=== PATIENT | female | born 1940 | race African-American/Black ===

== ENCOUNTER 2016-09-14 15:48 | Inpatient (IN) | payer OTHER, MEDICARE ==
[~2016-09-14] VITALS: Ht 170.2 cm; Wt 98.1 kg
[~2016-09-14 15:48] MED LIST: CLIN1CAP6 OR; LORTA5 PO; Z.0.NO CURRENT MEDS
[2016-09-14 16:27] VITALS: BP 100/54; PULSE 80; RESP 16; TEMP 97.8; O2SAT 99
[2016-09-14] MEDS ORDERED: SODIUM CHLORIDE 0.9% FLUSH 5 ML FLUSH IVF PRN (16:45)
--- NOTE | 2016-09-14 18:18 | PD ---
HPI Chief Complaint: Altered Mental Status Time Seen by Provider: 18:00 Travel History International Travel<30 days: No Contact w/Intl Traveler<30days: No Traveled to known affect area: No History of Present Illness HPI 76-year-old Afro-Australian female coming in with altered mental status. She was brought in by EMS. I have very little history on this patient. She is in the ambulance [facility] Past Medical History Medical History: Unable to Obtain Hypertension: Yes Past Surgical History Appendectomy: Yes Section: Yes Gynecologic Surgery: Yes ( ) Social History Alcohol Use: No Tobacco Use: No Substance Use: No Allergies-Medications (Allergen,Severity, Reaction): Coded Allergies: No Known Allergies (Verified , 09/14/16) Reported Meds & Prescriptions Reported Meds & Active Scripts Active Clindamycin Hcl (Clindamycin HCl) 300 Mg Cap 300 Mg OR TID Lortab 5/325 Tab (Hydrocodone-Acetaminophen) 1 Tab Tab 1 Tab PO Q6HPRN Reported No Current Meds (Miscellaneous Medication) Misc Review of Systems ROS Limitations: Altered Mental Status, Poor Historian General / Constitutional: No: Fever Eyes: No: Visual changes HENT: No: Headaches Cardiovascular: No: Chest Pain or Discomfort Respiratory: No: Shortness of Breath Gastrointestinal: No: Abdominal Pain Genitourinary: No: Dysuria Musculoskeletal: No: Pain Skin: No Rash Neurologic: No: Weakness Psychiatric: No: Depression Endocrine: No: Polydipsia Hematologic/Lymphatic: No: Easy Bruising Physical Exam Exam Limitations: Altered Mental Status, Poor Historian Narrative GENERAL: Patient appears in no acute distress. Patient answers all questions with " Uh-Huh". SKIN: Warm and dry. Normal color. Poor turgor. Mild tenting. HEAD: Atraumatic. Normocephalic. EYES: Pupils equal and round. No scleral icterus. No injection or drainage. ENT: No nasal bleeding or discharge. Mucous membranes pink and dry. Pharynx appears normal. Airway is patent. NECK: Trachea midline. No JVD. CARDIOVASCULAR: Regular rate and rhythm. RESPIRATORY: No accessory muscle use. Clear to auscultation. Breath sounds equal bilaterally. GASTROINTESTINAL: Abdomen soft, non-tender, nondistended. Hepatic and splenic margins not palpable. MUSCULOSKELETAL: Extremities without clubbing, cyanosis, or edema. No obvious deformities. NEUROLOGICAL: Awake and alert. Patient asking for something to drink. No obvious cranial nerve deficits. Motor grossly within normal limits. Five out of 5 muscle strength in the arms and legs. Normal speech. PSYCHIATRIC: Cannot assess due to patient's altered mental status. Data Data Last Documented VS Vital Signs Date Time Temp Pulse Resp B/P Pulse Ox O2 Delivery O2 Flow Rate FiO2 09/14/16 16:27 97.8 80 16 100/54 99 Orders Electrocardiogram (09/14/16 16:41) Basic Metabolic Panel (Bmp) (09/14/16 16:41) Complete Blood Count With Diff (09/14/16 16:41) Urinalysis - C+S If Indicated (09/14/16 16:41) Blood Glucose (09/14/16 16:41) Sodium Chloride 0.9% Flush (Ns Flush) (09/14/16 16:45) Cath For Specimen (09/14/16 16:41) Labs Laboratory Tests Test 09/14/16 17:51 White Blood Count 8.3 TH/MM3 Red Blood Count 4.52 MIL/MM3 Hemoglobin 12.6 GM/DL Hematocrit 39.9 % Mean Corpuscular Volume 88.2 FL Mean Corpuscular Hemoglobin 27.9 PG Mean Corpuscular Hemoglobin 31.6 % Concent Red Cell Distribution Width 15.3 % Platelet Count 222 TH/MM3 Mean Platelet Volume 8.8 FL Neutrophils (%) (Auto) 64.1 % Lymphocytes (%) (Auto) 22.7 % Monocytes (%) (Auto) 12.4 % Eosinophils (%) (Auto) 0.1 % Basophils (%) (Auto) 0.7 % Neutrophils # (Auto) 5.3 TH/MM3 Lymphocytes # (Auto) 1.9 TH/MM3 Monocytes # (Auto) 1.0 TH/MM3 Eosinophils # (Auto) 0.0 TH/MM3 Basophils # (Auto) 0.1 TH/MM3 CBC Comment DIFF FINAL Differential Comment MDM Medical Decision Making Medical Screen Exam Complete: Yes Emergency Medical Condition: Yes Differential Diagnosis Altered mental status. Urinary tract infection. Sepsis. Imbalance. Narrative Course Patient is medically stable at time of exam. CBC, CMP, urinalysis, blood glucose, EKG, is ordered. Patient is given 500 mL of normal saline bolus. Patient is awaiting med bed placement. Patient was moved to [facility], and an patient's care was assumed by Dr. Dimas after I discussed her with him. Condition: Stable Wes Hines Sep 14, 2016 18:18 Wes Hines Sep 14, 2016 18:18
[2016-09-14 18:46] LABS: AUTOMATED NEUTROPHIL # 5.3 TH/MM3 (1.8-7.7); BASOPHIL # 0.1 TH/MM3 (0-0.2); BASOPHIL % 0.7 % (0.0-2.0); EOSINOPHIL % 0.1 % (0.0-4.0); HEMATOCRIT 39.9 % (35.0-46.0); HEMO FLAGS DIFF FINAL; LYMPH % 22.7 % (9.0-44.0); LYMPHOCYTE # 1.9 TH/MM3 (1.0-4.8); MEAN CELL VOLUME 88.2 FL (80.0-100.0); MEAN CORPUSCULAR HEMOGLOBIN 27.9 PG (27.0-34.0); MEAN CORPUSCULAR HGB CONC 31.6 % (32.0-36.0); MONO % 12.4 % (0.0-8.0); NEUT % 64.1 % (16.0-70.0); PLATELET COUNT 222 TH/MM3 (150-450); RED BLOOD COUNT 4.52 MIL/MM3 (4.00-5.30); RED CELL DISTRIBUTION WIDTH 15.3 % (11.6-17.2); WHITE BLOOD COUNT 8.3 TH/MM3 (4.0-11.0)
[2016-09-14 19:05] LABS: BICARBONATE 13.8 MEQ/L (21.0-32.0); POTASSIUM 4.8 MEQ/L (3.5-5.1)
--- NOTE | 2016-09-14 19:39 | PD ---
Physical Exam Narrative Patient was seen and examined with my assistant professor of economics. Patient's daughter states the patient was lethargic and would not get out of bed this morning. Patient otherwise denies any headache, chest pain or shortness of breath, abdominal pain, nausea vomiting diarrhea. Patient denies any focal weakness and numbness of extremity. Patient has history hypertension , CAD, dyslipidemia. Patient started having bilateral eye discharge since yesterday. Patient has an appointment with armature inspector this morning but could not make it. Patient's daughter states that no history of CVA or NM. Patient's daughter states that no coughing congestion fever chills recently. Patient's daughter states the patient has been eating well. Data Data Last Documented VS Vital Signs Date Time Temp Pulse Resp B/P Pulse Ox O2 Delivery O2 Flow Rate FiO2 09/14/16 20:00 98.1 83 19 96/57 97 Room Air Orders Electrocardiogram (09/14/16 16:41) Basic Metabolic Panel (Bmp) (09/14/16 16:41) Complete Blood Count With Diff (09/14/16 16:41) Urinalysis - C+S If Indicated (09/14/16 16:41) Blood Glucose (09/14/16 16:41) Sodium Chloride 0.9% Flush (Ns Flush) (09/14/16 16:45) Cath For Specimen (09/14/16 16:41) Creatine Kinase (Cpk) (09/14/16 19:31) Troponin I (09/14/16 19:31) B-Type Natriuretic Peptide (09/14/16 19:31) Prothrombin Time / Inr (Pt) (09/14/16 19:31) Act Partial Throm Time (Ptt) (09/14/16 19:31) Blood Culture (09/14/16 19:31) Hepatic Functional Panel (09/14/16 19:31) Thyroid Stimulating Hormone (09/14/16 19:31) Chest, Single Ap (09/14/16 19:31) Ct Brain W/O Iv Contrast(Rout) (09/14/16 19:31) CKMB (09/14/16 17:51) CKMB% (09/14/16 17:51) Urine Culture (09/14/16 19:40) Lactic Acid (09/14/16 21:35) Beta Hydroxybutyrate (Acetone) (09/14/16 21:37) Piperacil-Tazo 3.375 Gm Premix (Zosyn 3. (09/14/16 21:45) Vancomycin Inj (Vancomycin Inj) (09/14/16 21:45) ^ Television Inspector / Telemetry (09/14/16 21:41) Diet Npo (09/15/16 Breakfast) Sodium Chlor 0.9% 1000 Ml Inj (Ns 1000 M (09/14/16 21:41) Dext 5%-Nacl 0.9% 1000 Ml Inj (D5w-Ns 10 (09/14/16 21:41) Insulin Human Regular Inj (Novolin R Inj (09/14/16 21:45) Insulin Regular (Iv Infusion) (Novolin R (09/14/16 21:45) Potassium Chlor 40 Meq Premix (Kcl 40 Me (09/14/16 21:45) Potassium Chlor 40 Meq Premix (Kcl 40 Me (09/14/16 21:45) Potassium Chlor 20 Meq Premix (Kcl 20 Me (09/14/16 21:45) Potassium Chlor 20 Meq Premix (Kcl 20 Me (09/14/16 21:45) Potassium Chlor 20 Meq Premix (Kcl 20 Me (09/14/16 21:45) Potassium Chlor 20 Meq Premix (Kcl 20 Me (09/14/16 21:45) Potassium Chlor 20 Meq Premix (Kcl 20 Me (09/14/16 21:45) Potassium Chlor 20 Meq Premix (Kcl 20 Me (09/14/16 21:45) Sodium Bicarbonate 8.4% Inj (Sodium Bica (09/14/16 21:45) Sodium Bicarbonate 8.4% Inj (Sodium Bica (09/14/16 21:45) Sodium Phosphate Inj (Sodium Phosphate I (09/14/16 21:45) Hemoglobin (Hgb) A1c (09/14/16 21:41) Basic Metabolic Panel (Bmp) (09/15/16 02:41) Basic Metabolic Panel (Bmp) (09/15/16 08:41) Basic Metabolic Panel (Bmp) (09/15/16 14:41) Basic Metabolic Panel (Bmp) (09/15/16 20:41) Magnesium (Mg) (09/15/16 02:41) Magnesium (Mg) (09/15/16 08:41) Magnesium (Mg) (09/15/16 14:41) Magnesium (Mg) (09/15/16 20:41) Phosphorus (Po4) (09/15/16 02:41) Phosphorus (Po4) (09/15/16 08:41) Phosphorus (Po4) (09/15/16 14:41) Phosphorus (Po4) (09/15/16 20:41) Beta Hydroxybutyrate (Acetone) (09/15/16 08:41) Beta Hydroxybutyrate (Acetone) (09/15/16 20:41) Arterial Blood Gas (Abg) (09/14/16 ) Admit Order (Ed Use Only) (09/14/16 22:12) ^ Initiate Protocol (09/14/16 22:10) ^ Instruction (09/14/16 22:10) [facility] Nursing Information (09/14/16 22:15) Chlorhexidine 2% Cloth (Chlorhexidine 2% (09/15/16 04:00) Chlorhexidine 2% Cloth (Chlorhexidine 2% (09/14/16 22:15) [facility]sa Pcr Surveillance (09/14/16 22:10) Admit To Inpatient (09/14/16 ) Vital Signs (Adult) Q4H (09/14/16 22:10) Activity Oob With Assistance (09/14/16 22:10) ^ Television Inspector / Telemetry .CONTINUOUS (09/14/16 22:10) Intake + Output CINTHIA.QSHIFT (09/14/16 22:10) Sodium Chloride 0.9% Flush (Ns Flush) (09/14/16 22:15) Sodium Chloride 0.9% Flush (Ns Flush) (09/15/16 09:00) Ondansetron Inj (Zofran Inj) (09/14/16 22:15) Bisacodyl Supp (Dulcolax Supp) (09/14/16 22:15) Scd Bilateral/Knee High CINTHIA.BID (09/14/16 22:10) Alen Bilateral/Knee High CINTHIA.QSHIFT (09/14/16 22:10) Acetaminophen (Tylenol) (09/14/16 22:15) Inpatient Certification (09/14/16 ) Ceftriaxone Inj (Rocephin Inj) (09/15/16 09:00) Consult [employer]orer [employer] (09/14/16 ) Labs Laboratory Tests Test 09/14/16 09/14/16 17:51 19:40 White Blood Count 8.3 TH/MM3 Red Blood Count 4.52 MIL/MM3 Hemoglobin 12.6 GM/DL Hematocrit 39.9 % Mean Corpuscular Volume 88.2 FL Mean Corpuscular Hemoglobin 27.9 PG Mean Corpuscular Hemoglobin 31.6 % Concent Red Cell Distribution Width 15.3 % Platelet Count 222 TH/MM3 Mean Platelet Volume 8.8 FL Neutrophils (%) (Auto) 64.1 % Lymphocytes (%) (Auto) 22.7 % Monocytes (%) (Auto) 12.4 % Eosinophils (%) (Auto) 0.1 % Basophils (%) (Auto) 0.7 % Neutrophils # (Auto) 5.3 TH/MM3 Lymphocytes # (Auto) 1.9 TH/MM3 Monocytes # (Auto) 1.0 TH/MM3 Eosinophils # (Auto) 0.0 TH/MM3 Basophils # (Auto) 0.1 TH/MM3 CBC Comment DIFF FINAL Differential Comment Sodium Level 132 MEQ/L Potassium Level 4.8 MEQ/L Chloride Level 95 MEQ/L Carbon Dioxide Level 13.8 MEQ/L Anion Gap 23 MEQ/L Blood Urea Nitrogen 19 MG/DL Creatinine 1.37 MG/DL Estimat Glomerular Filtration 46 ML/MIN Rate Random Glucose 447 MG/DL Calcium Level 9.0 MG/DL Total Bilirubin 0.6 MG/DL Direct Bilirubin 0.1 MG/DL Indirect Bilirubin 0.5 MG/DL Aspartate Amino Transf 9 U/L (AST/SGOT) Alanine Aminotransferase 18 U/L (ALT/SGPT) Alkaline Phosphatase 86 U/L Total Creatine Kinase 331 U/L Creatine Kinase MB 1.5 NG/ML Creatine Kinase MB % 0.5 % Troponin I LESS THAN 0.02 NG/ML B-Type Natriuretic Peptide 13 PG/ML Total Protein 7.5 GM/DL Albumin 3.5 GM/DL Thyroid Stimulating Hormone 1.450 uIU/ML 3rd Gen Urine Color LIGHT-YELLOW Urine Turbidity HAZY Urine pH 5.0 Urine Specific [place] 1.026 Urine Protein TRACE mg/dL Urine Glucose (UA) 1000 mg/dL Urine Ketones 150 mg/dL Urine Occult Blood TRACE Urine Nitrite NEG Urine Bilirubin NEG Urine Urobilinogen LESS THAN 2.0 MG/DL Urine Leukocyte Esterase MOD Urine RBC 16 /hpf Urine WBC 20 /hpf Urine WBC Clumps FEW Urine Squamous Epithelial 2 /hpf Cells Urine Bacteria FEW /hpf Urine Yeast (Budding) MANY Microscopic Urinalysis Comment CATH-CULTURE IND MDM Medical Record Reviewed: Yes Supervised Visit with RICHAR: Yes Interpretation(s) Last Impressions Head CT 09/14/161930 Signed Impressions: Service Date/Time: Wednesday, September 14, 2016 20:06 - CONCLUSION: 1. No acute findings. Remote lacunar infarct left basal ganglia. Shaheen Olsen MD Chest X-Ray 09/14/161930 Signed Impressions: Service Date/Time: Wednesday, September 14, 2016 20:03 - CONCLUSION: 1. No focal consolidation. Tortuous aorta. Shaheen Olsen MD 21:32 PM. CBC within normal limit. Sodium 132. Bicarbonate 13.8. BUN 19. Creatinine 1.37. Glucose 447. Cardiac enzymes are normal. UA positive for glucose, ketone, WBC, RBC, bacteria. Narrative Course DKA protocol started. Vancomycin 1 g IV. Zosyn 3.375 g IV given. Procedures Procedure Narrative CENTRAL VENOUS LINE: The site was prepped with Betadine and sterilely draped. It was infiltrated with 1% lidocaine plain. The deep vein was cannulated using normal Seldinger technique. A triple lumen central line was placed in the right femoral vein site and secured with simple interrupted suture. The site was sterilely dressed. The patient tolerated the procedure well. Diagnosis Primary Impression: UTI (urinary tract infection) Qualified Code: N30.00 - Acute cystitis without hematuria Additional Impressions: Sepsis Qualified Code: A41.9 - Sepsis, due to unspecified organism DKA (diabetic ketoacidoses) Qualified Code: E13.10 - Diabetic ketoacidosis without coma associated with type 2 diabetes mellitus Admitting Information Admitting Physician Requests: Admit Scripts Unable to Obtain Active Prescriptions or Reported Meds Condition: Stable Nikhil Dimas MD Sep 14, 2016 19:39
[2016-09-14 20:00] VITALS: BP 96/57; PULSE 83; RESP 19; TEMP 98.1; O2SAT 97
--- NOTE | 2016-09-14 20:37 | RADRPT ---
EXAM DATE/TIME: 09/14/2016 20:03 [facility] COMPARISON: No previous studies available for comparison. INDICATIONS : Shortness of breath. MEDICAL HISTORY : None. SURGICAL HISTORY : None. ENCOUNTER: Initial ACUITY: 1 day PAIN SCORE: 0/10 LOCATION: chest FINDINGS: A single view of the chest demonstrates the lungs to be symmetrically aerated without evidence of mas s, infiltrate or effusion. The cardiomediastinal contours are unremarkable, except tortuous aorta. O sseous structures are intact. CONCLUSION: 1. No focal consolidation. Tortuous aorta. Shaheen Olsen MD on September 14, 2016 at 20:35 Board Certified Radiologist. This report was verified electronically.
[2016-09-14 20:49] LABS: ALKALINE PHOSPHATASE 86 U/L (45-117); ALT (GPT) 18 U/L (10-53); AST (GOT) 9 U/L (15-37); CREATINE KINASE 331 U/L (26-192); INDIRECT BILIRUBIN 0.5 MG/DL (0.0-0.8); TOTAL BILIRUBIN ADULT 0.6 MG/DL (0.2-1.0)
[2016-09-14 20:50] LABS: BACTERIA, URINE FEW /hpf; BLOOD, URINE TRACE (NEG); GLUCOSE,URINE 1000 mg/dL (NEG); KETONE, URINE 150 mg/dL (NEG); NITRITE,URINE NEG (NEG); SQUAMOUS EPITHELIAL CELL URINE 2 /hpf (0-5); URINE COLOR LIGHT-YELLOW (YELLW/STRAW)
--- NOTE | 2016-09-14 20:50 | RADRPT ---
EXAM DATE/TIME: 09/14/2016 20:06 [facility] COMPARISON: No previous studies available for comparison. INDICATIONS : Altered mental status; confusion. RADIATION DOSE: 41.27 CTDIvol (mGy) MEDICAL HISTORY : Hypertension. SURGICAL HISTORY : None. ENCOUNTER: Initial ACUITY: 1 day PAIN SCALE: 0/10 LOCATION: cranial TECHNIQUE: Multiple contiguous axial images were obtained of the head. Using automated exposure control and adj ustment of the mA and/or kV according to patient size, radiation dose was kept as low as reasonably a chievable to obtain optimal diagnostic quality images. FINDINGS: There is a remote lacunar infarct in the left basal ganglia. No mass or shift no hydrocephalus abnorm al extra-axial fluid collections. No acute bony abnormalities. CONCLUSION: 1. No acute findings. Remote lacunar infarct left basal ganglia. Shaheen Olsen MD on September 14, 2016 at 20:45 Board Certified Radiologist. This report was verified electronically.
[2016-09-14 20:52] LABS: COMMENT (UR) CATH-CULTURE IND; CULTURE IF INDICATED CATH CULTURE IND
[2016-09-14 21:00] VITALS: BP 98/60; PULSE 74; RESP 19; O2SAT 99
[2016-09-14 21:01] LABS: CKMB 1.5 NG/ML (0.5-3.6)
[2016-09-14] MEDS: DEXT 5%-NACL 0.9% 1000 ML INJ 1,000 ML IV SCH (21:41)
[2016-09-14] MEDS ORDERED: INSULIN HUMAN REGULAR 1,000 UNITS/10 ML VIAL IV PUSH ONE (21:45)
[2016-09-14] MEDS ORDERED: PIPERACIL-TAZO 3.375 GM PREMIX 50 ML IV ONE (21:45)
[2016-09-14] MEDS ORDERED: VANCOMYCIN INJ 1,000 MG in SODIUM CHLOR 0.9% 250 ML INJ 250 ML IV ONE (21:45)
[2016-09-14] MEDS ORDERED: POTASSIUM CHLOR 40 MEQ PREMIX 100 ML IV PRN ×2 (21:45)
[2016-09-14] MEDS ORDERED: SODIUM BICARBONATE 8.4% SOLN 50 MEQ/50 ML VIAL IV PRN ×2 (21:45)
[2016-09-14] MEDS ORDERED: SODIUM PHOSPHATE INJ 15 MMOL in SODIUM CHLORIDE 0.9% INJ 100 ML IV PRN (21:45)
[2016-09-14] MEDS ORDERED: POTASSIUM CHLOR 20 MEQ PREMIX 100 ML IV PRN ×5 (21:45)
[2016-09-14 22:00] VITALS: BP 92/60; PULSE 78; RESP 21; O2SAT 100
--- NOTE | 2016-09-14 22:14 | HHI.HP ---
[facility] Paul Balbuena MD Admission Diagnosis DKA. UTI. Sepsis. Diagnoses: (1) DKA (diabetic ketoacidoses) Diagnosis: Principal (2) Metabolic acidosis Diagnosis: Principal (3) UTI (urinary tract infection) Diagnosis: Principal Travel History International Travel<30 Days: No Contact w/Intl Traveler <30 Da: No Traveled to Known Affected Are: No History of Present Illness This is a 76-year-old female with a PMH of HTN and DM who was brought to the ER by EMS secondary to altered mental status reported by family. History limited. On arrival, BP 100/54, HR 80, O2 sat 99% on RA, Afebrile. CBC essentially unremarkable. Creatinine 1.37, previously 0.85 on 04/04/13. Anion gap 23. CO2 13.8. BS 447. CPK 331. Lactic Acid 1.4. UA positive for UTI. CT Head with no acute findings, remote lacunar infarct left basal ganglia. CXR with no focal consolidation. Started on insulin gtt in ER for DKA, in addition to Vanc/ Zosyn for possible Sepsis. Review of Systems Other ROS: 14 point review of systems otherwise negative. Past Family Social History Past Medical History PMH: HTN and DM Past Surgical History PAST SURGICAL HISTORY: Appendectomy, Allergies: Coded Allergies: No Known Allergies (Verified , 09/14/16) Family History PAST FAMILY HISTORY: Reviewed, positive for DM. Social History PAST SOCIAL HISTORY: Negative for alcohol, tobacco or drugs. Physical Exam Vital Signs Vital Signs Date Time Temp Pulse Resp B/P Pulse Ox O2 Delivery O2 Flow Rate FiO2 09/14/16 20:00 98.1 83 19 96/57 97 Room Air 09/14/16 16:27 97.8 80 16 100/54 99 Physical Exam PE: GENERAL: Elderly black female in no acute distress. HEENT: PERRLA, EOMI. No scleral icterus or conjunctival pallor. No lid lag or facial droop. CARDIOVASCULAR: Regular rate and rhythm. No obvious murmurs to auscultation. No chest tenderness to palpation. RESPIRATORY: No obvious rhonchi or wheezing. Clear to auscultation. Breath sounds equal bilaterally. GASTROINTESTINAL: Abdomen soft, non-tender, nondistended. BS normal. MUSCULOSKELETAL: Extremities without clubbing, cyanosis, or edema. No obvious deformities. NEUROLOGICAL: Awake, alert but confused. No focal neurologic deficits. Moving both upper and lower extremities spontaneously. Laboratory Laboratory Tests Test 09/14/16 09/14/16 17:51 19:40 White Blood Count 8.3 Red Blood Count 4.52 Hemoglobin 12.6 Hematocrit 39.9 Mean Corpuscular Volume 88.2 Mean Corpuscular Hemoglobin 27.9 Mean Corpuscular Hemoglobin 31.6 Concent Red Cell Distribution Width 15.3 Platelet Count 222 Mean Platelet Volume 8.8 Neutrophils (%) (Auto) 64.1 Lymphocytes (%) (Auto) 22.7 Monocytes (%) (Auto) 12.4 Eosinophils (%) (Auto) 0.1 Basophils (%) (Auto) 0.7 Neutrophils # (Auto) 5.3 Lymphocytes # (Auto) 1.9 Monocytes # (Auto) 1.0 Eosinophils # (Auto) 0.0 Basophils # (Auto) 0.1 CBC Comment DIFF FINAL Differential Comment Sodium Level 132 Potassium Level 4.8 Chloride Level 95 Carbon Dioxide Level 13.8 Anion Gap 23 Blood Urea Nitrogen 19 Creatinine 1.37 Estimat Glomerular Filtration 46 Rate Random Glucose 447 Calcium Level 9.0 Total Bilirubin 0.6 Direct Bilirubin 0.1 Indirect Bilirubin 0.5 Aspartate Amino Transf 9 (AST/SGOT) Alanine Aminotransferase 18 (ALT/SGPT) Alkaline Phosphatase 86 Total Creatine Kinase 331 Creatine Kinase MB 1.5 Creatine Kinase MB % 0.5 Troponin I LESS THAN 0.02 B-Type Natriuretic Peptide 13 Total Protein 7.5 Albumin 3.5 Thyroid Stimulating Hormone 1.450 3rd Gen Urine Color LIGHT-YELLOW Urine Turbidity HAZY Urine pH 5.0 Urine Specific [place] 1.026 Urine Protein TRACE Urine Glucose (UA) 1000 Urine Ketones 150 Urine Occult Blood TRACE Urine Nitrite NEG Urine Bilirubin NEG Urine Urobilinogen LESS THAN 2.0 Urine Leukocyte Esterase MOD Urine RBC 16 Urine WBC 20 Urine WBC Clumps FEW Urine Squamous Epithelial 2 Cells Urine Bacteria FEW Urine Yeast (Budding) MANY Microscopic Urinalysis Comment CATH-CULTURE IND Date/Time Procedure Status Source Growth 09/14/16 19:40 Urine Culture Received Urine Clean Catch Pending Result Diagram: 09/14/16175009/14/161750 Assessment and Plan Problem List: (1) DKA (diabetic ketoacidoses) ICD Code: E13.10 Status: Acute (2) UTI (urinary tract infection) ICD Code: N39.0 Status: Acute (3) Metabolic acidosis ICD Code: E87.2 Status: Acute Assessment and Plan A/P: 1. DKA: AG 23, CO2 13.8, BS 447. Started on Insulin gtt in ER, will admit to ICU and continue w/ DKA Protocol, check Hgb A1c, aggressive IVF, repeat labs. 2. UTI: U/a w/ UTI, follow up cultures, continue w/ IV Rocephin. 3. Metabolic Acidosis: AG 23, likely secondary to DKA however possibility of Sepsis w/ UTI, s/p Blood Cultures, Vanc/Zosyn in ER. Lactic Acid 1.4. Continue w/ DKA treatment. 4. DVT Prophylaxis: SCD/Teds. 5. Social work for d/c planning as needed. 6. Case discussed w/ ER physician at length. Physician Certification 2 Midnight Certification Type: Admission for Inpatient Services Order for Inpatient Services The services are ordered in accordance with Medicare regulations or non- Medicare payer requirements, as applicable. In the case of services not specified as inpatient-only, they are appropriately provided as inpatient services in accordance with the 2-midnight benchmark. Estimated LOS (days): 2 days is the estimated time the patient will need to remain in the hospital, assuming treatment plan goals are met and no additional complications. Post-Hospital Plan: Not yet determined Problem Qualifiers (1) DKA (diabetic ketoacidoses): Qualified Code: E13.10 - Diabetic ketoacidosis without coma associated with type 2 diabetes mellitus (2) UTI (urinary tract infection): Qualified Code: N30.00 - Acute cystitis without hematuria Mirella Eason MD Sep 14, 2016 22:14
[2016-09-14] MEDS ORDERED: MISCELLANEOUS NURSING INFORMATION XX SCH (22:15)
[2016-09-14] MEDS ORDERED: ONDANSETRON HCL 4 MG/2 ML VIAL IVP PRN (22:15)
[2016-09-14] MEDS ORDERED: CHLORHEXIDINE GLUCONATE 2 % 1 PACK (2 CLOTHS) TOP PRN (22:15)
[2016-09-14] MEDS ORDERED: BISACODYL 10 MG SUPP PR PRN (22:15)
[2016-09-14] MEDS ORDERED: ACETAMINOPHEN 325 MG TAB PO PRN (22:15)
[2016-09-14] MEDS ORDERED: SODIUM CHLORIDE 0.9% FLUSH 5 ML FLUSH FLUSH PRN (22:15)
[2016-09-14 23:00] VITALS: BP 129/58; PULSE 72; RESP 16; O2SAT 100
[2016-09-14] MEDS: SODIUM CHLOR 0.9% 1000 ML INJ 1,000 ML IV SCH (23:54)
[2016-09-14] MEDS: POTASSIUM CHLOR 20 MEQ PREMIX 100 ML IV PRN (23:59)
[2016-09-15] VITALS (18 sets, daily range): BP systolic 79–131; BP diastolic 48–88; PULSE 71–109; RESP 12–22; TEMP 98.3–99.3; O2SAT 91–100
[2016-09-15] MEDS: INSULIN REGULAR (IV INFUSION) 100 UNITS in SODIUM CHLORIDE 0.9% INJ 99 ML IV SCH ×2 (00:12→08:27)
[2016-09-15] MEDS ORDERED: SODIUM CHLOR 0.9% 1000 ML INJ 1,000 ML IV ONE ×2 (00:45)
[2016-09-15] MEDS: POTASSIUM CHLOR 20 MEQ PREMIX 100 ML IV PRN (01:46)
[2016-09-15 01:48] LABS: PROTHROMBIN TIME - PATIENT 10.7 SEC (9.8-11.6)
[2016-09-15 01:51] LABS: BICARBONATE 11.7 MEQ/L (21.0-32.0); MAGNESIUM 2.1 MG/DL (1.5-2.5)
[2016-09-15] MEDS: DEXT 5%-NACL 0.9% 1000 ML INJ 1,000 ML IV SCH ×2 (02:41→08:27)
[2016-09-15 03:29] LABS: BLOOD GAS BASE EXCESS -15.8 mmol/L (-2-2); BLOOD GAS CARBOXYHEMOGLOBIN 2.5 % (0-4); BLOOD GAS HCO3 9 mmol/L (22-26); BLOOD GAS METHEMOGLOBIN 2.3 % (0-2); BLOOD GAS O2 HGB SATURATION 94 % (90-100); BLOOD GAS OXYGEN CONTENT 15.7 Vol % (12.0-20.0); BLOOD GAS PCO2 19 mmHg (38-42); BLOOD GAS PO2 116 mmHG (61-120); BLOOD GAS TOTAL HGB 11.7 G/DL (12.0-16.0); TEMP CORR TO 98.6
[2016-09-15] MEDS: CHLORHEXIDINE GLUCONATE 2 % 1 PACK (2 CLOTHS) TOP SCH (03:29)
[2016-09-15 03:31] LABS: CRITICAL VALUE YES; DRAW SITE LT BRACHIAL; FIO2 21 %; NUMBER OF ARTERIAL PUNCTURES 3; OXYGEN DEVICE RA; STAT YES
[2016-09-15] MEDS: SODIUM CHLOR 0.9% 1000 ML INJ 1,000 ML IV SCH ×4 (05:41→20:32)
[2016-09-15] MEDS: cefTRIAXone INJ 1,000 MG in SODIUM CHLORIDE 0.9% INJ 100 ML IV SCH (08:25)
[2016-09-15] MEDS: SODIUM CHLORIDE 0.9% FLUSH 5 ML FLUSH FLUSH SCH ×2 (08:39→20:32)
[2016-09-15 10:05] LABS: ANION GAP 11 MEQ/L (5-15); BETA-HYDROXYBUTYRATE 2.38 MMOL/L (0.00-0.39); BLOOD UREA NITROGEN 13 MG/DL (7-18); CHLORIDE 109 MEQ/L (98-107); GLOMERULAR FILTRATION RATE 56 ML/MIN (>89); MAGNESIUM 1.9 MG/DL (1.5-2.5); POTASSIUM 3.5 MEQ/L (3.5-5.1); SODIUM (NA) 141 MEQ/L (136-145)
[2016-09-15] MEDS ORDERED: DEXTROSE 50% IN WATER 50 ML VIAL(D50) IV PUSH PRN (12:30)
[2016-09-15] MEDS ORDERED: GLUCAGON 1 MG/ML VIAL OTHER PRN (12:30)
--- NOTE | 2016-09-15 12:44 | HHI.PR ---
Subjective Remarks Follow-up DKA/UTI 09/15/16-patient seen and examined alert and oriented 2; anion gap closed. Currently afebrile Objective Vitals Vital Signs Date Time Temp Pulse Resp B/P Pulse Ox O2 Delivery O2 Flow Rate FiO2 09/15/16 10:30 77 09/15/16 08:00 98.3 76 16 100/58 96 09/15/16 08:00 82 09/15/16 07:27 95 09/15/16 06:00 71 09/15/16 04:00 98.5 71 17 87/53 95 09/15/16 04:00 71 09/15/16 03:33 79 09/15/16 03:09 98.5 75 17 98/58 95 09/15/16 02:00 76 18 131/88 100 Room Air 09/15/16 01:15 75 16 95/57 100 Room Air 09/15/16 00:41 73 18 97/50 98 Room Air 09/15/16 00:00 72 16 100/68 98 Room Air 09/14/16 23:00 72 16 129/58 100 Room Air 09/14/16 22:00 78 21 92/60 100 Room Air 09/14/16 21:00 74 19 98/60 99 Room Air 09/14/16 20:00 98.1 83 19 96/57 97 Room Air 09/14/16 16:27 97.8 80 16 100/54 99 I/O 09/14/16 09/14/16 09/14/16 09/15/16 09/15/16 09/15/16 07:00 15:00 23:00 07:00 15:00 23:00 Intake Total 1275 ml Output Total 750 ml Balance 525 ml Intake IV Total 1275 ml Output Urine Total 750 ml # Voids 1 # Bowel Movements 0 Result Diagram: 09/14/16 1751 09/15/16 0915 Imaging Last Impressions Head CT 09/14/161930 Signed Impressions: Service Date/Time: Wednesday, September 14, 2016 20:06 - CONCLUSION: 1. No acute findings. Remote lacunar infarct left basal ganglia. Shaheen Olsen MD Chest X-Ray 09/14/161930 Signed Impressions: Service Date/Time: Wednesday, September 14, 2016 20:03 - CONCLUSION: 1. No focal consolidation. Tortuous aorta. Shaheen Olsen MD Objective Remarks GENERAL: NAD but lethargic SKIN: Warm and dry. HEAD: Normocephalic. EYES: No scleral icterus. No injection or drainage. NECK: Supple, trachea midline. No JVD or lymphadenopathy. CARDIOVASCULAR: Regular rate and rhythm without murmurs, gallops, or rubs. RESPIRATORY: Breath sounds decrease bilaterally. No accessory muscle use. GASTROINTESTINAL: Abdomen soft, non-tender, nondistended. MUSCULOSKELETAL: No cyanosis; + trace edema. BACK: Nontender without obvious deformity. No CVA tenderness. A/P Problem List: (1) DKA (diabetic ketoacidoses) ICD Code: E13.10 Status: Acute (2) UTI (urinary tract infection) ICD Code: N39.0 Status: Acute (3) Metabolic acidosis ICD Code: E87.2 Status: Acute Assessment and Plan 76-year-old female with 1. DKA: anion gap closed and DKA resolved therefore will discontinue insulin drip with serial electron monitoring, DC D5 water and start normal saline along with sliding scale insulin 2. Diabetes type 1?: Start insulin sliding scale. We'll hold on basal insulin secondary to patient's mentation. Hemoglobin A1c pending. 3. UTI: U/a w/ UTI, follow up cultures, continue w/ IV Rocephin. 4. Possible sepsis: Likely source UTI; currently on Rocephin. Follow culture 5. Metabolic Acidosis: Resolved. Likely secondary to DKA however possibility of Sepsis w/ UTI, s/p Blood Cultures, Vanc/Zosyn in ER. Lactic Acid 1.4. Continue w/ diabetes treatment 6. Decubitus ulcer stage I: Start Santyl and will consult wound care nurse 7. Bilateral edema /Urinary retention? BNP within normal limit, CHF without any evidence of pulmonary congestion; will give a touch of Lasix IV 10 mg 1 now 8. Acute renal failure: Improving with IV fluid hydration, monitor BUN and creatinine 9. DVT Prophylaxis: SCD/Teds. Problem Qualifiers (1) DKA (diabetic ketoacidoses): Qualified Code: E13.10 - Diabetic ketoacidosis without coma associated with type 2 diabetes mellitus (2) UTI (urinary tract infection): Qualified Code: N30.00 - Acute cystitis without hematuria Anatoliy Byrnes MD Sep 15, 2016 12:44
[2016-09-15] MEDS ORDERED: FUROSEMIDE 20 MG/2 ML VIAL IV PUSH ONE (12:45)
[2016-09-15] MEDS: INSULIN ASPART SUPPLEMENTAL SCALE SQ SCH ×2 (16:36→20:33)
[2016-09-15] MEDS ORDERED: SODIUM CHLORID 0.9% 500 ML INJ 500 ML IV ONE (20:15)
[2016-09-16] VITALS (9 sets, daily range): BP systolic 106–158; BP diastolic 55–77; PULSE 89–102; RESP 15–20; TEMP 98.1–99.8; O2SAT 94–99
[2016-09-16] MEDS: CHLORHEXIDINE GLUCONATE 2 % 1 PACK (2 CLOTHS) TOP SCH (04:00)
[2016-09-16 05:20] LABS: BASOPHIL % 0.3 % (0.0-2.0); EOSINOPHIL % 0.5 % (0.0-4.0); HEMATOCRIT 30.2 % (35.0-46.0); HEMO FLAGS DIFF FINAL; LYMPH % 25.9 % (9.0-44.0); LYMPHOCYTE # 1.6 TH/MM3 (1.0-4.8); MEAN CELL VOLUME 85.2 FL (80.0-100.0); MEAN CORPUSCULAR HEMOGLOBIN 28.2 PG (27.0-34.0); MEAN CORPUSCULAR HGB CONC 33.1 % (32.0-36.0); MONO % 10.8 % (0.0-8.0); NEUT % 62.5 % (16.0-70.0); PLATELET COUNT 165 TH/MM3 (150-450); RED BLOOD COUNT 3.55 MIL/MM3 (4.00-5.30); WHITE BLOOD COUNT 6.3 TH/MM3 (4.0-11.0)
[2016-09-16] MEDS: INSULIN ASPART SUPPLEMENTAL SCALE SQ SCH ×4 (05:35→21:00)
[2016-09-16] MEDS: SODIUM CHLOR 0.9% 1000 ML INJ 1,000 ML IV SCH ×3 (05:35→20:30)
[2016-09-16] MEDS: NYSTATIN 100,000 U/GM PWD 15 GM BTL TOPICAL SCH ×3 (05:36→21:35)
[2016-09-16 05:37] LABS: BICARBONATE 19.7 MEQ/L (21.0-32.0); POTASSIUM 3.4 MEQ/L (3.5-5.1)
[2016-09-16 05:50] LABS: CALCIUM-PROTEIN CORRECTED 8.3 MG/DL (8.5-10.1)
[2016-09-16] MEDS ORDERED: POTASSIUM CHLORIDE 20 MEQ CONTROLLED RELEASE TAB PO ONE (06:15)
[2016-09-16] MEDS ORDERED: POTASSIUM CL 40 MEQ/30 ML LIQ UDC PO ONE (07:15)
[2016-09-16] MEDS: INSULIN HUMAN NPH/R 70/30 1,000 UNITS/10 ML VIAL SQ SCH ×2 (08:00→17:51)
--- NOTE | 2016-09-16 08:55 | HHI.PR ---
Subjective Remarks Follow-up DKA/UTI 09/15/16-patient seen and examined alert and oriented 2; anion gap closed. Currently afebrile 09/16/16-patient seen and examined, no complaint overnight and stable. Alert and oriented 3. Blood glucose slightly up. 2 positive blood culture Objective Vitals Vital Signs Date Time Temp Pulse Resp B/P Pulse Ox O2 Delivery O2 Flow Rate FiO2 09/16/16 08:00 99.8 92 19 111/63 98 09/16/16 08:00 89 09/16/16 06:00 91 09/16/16 04:00 98 09/16/16 04:00 99.2 98 15 116/60 95 09/16/16 02:00 97 09/16/16 00:00 99 09/16/16 00:00 99.0 98 16 106/55 94 09/15/16 22:00 100 09/15/16 20:57 95 21 09/15/16 20:00 99.3 109 22 79/48 91 09/15/16 20:00 93 09/15/16 18:00 101 09/15/16 16:00 98 09/15/16 16:00 98.7 98 12 93/51 95 09/15/16 14:00 90 09/15/16 12:00 98.3 81 14 84/51 95 09/15/16 12:00 84 09/15/16 10:30 77 I/O 09/15/16 09/15/16 09/15/16 09/16/16 09/16/16 09/16/16 07:00 15:00 23:00 07:00 15:00 23:00 Intake Total 1275 ml 2103 ml 1820 ml 1767 ml Output Total 750 ml 950 ml 1000 ml 550 ml Balance 525 ml 1153 ml 820 ml 1217 ml Intake Oral 260 ml 200 ml 1050 ml IV Total 1275 ml 1843 ml 1620 ml 717 ml Output Urine Total 750 ml 950 ml 1000 ml 550 ml # Voids 1 # Bowel Movements 0 0 0 Result Diagram: 09/16/16 0454 09/16/16 0454 Objective Remarks GENERAL: NAD but lethargic SKIN: Warm and dry. HEAD: Normocephalic. EYES: No scleral icterus. No injection or drainage. NECK: Supple, trachea midline. No JVD or lymphadenopathy. CARDIOVASCULAR: Regular rate and rhythm without murmurs, gallops, or rubs. RESPIRATORY: Breath sounds decrease bilaterally. No accessory muscle use. GASTROINTESTINAL: Abdomen soft, non-tender, nondistended. MUSCULOSKELETAL: No cyanosis; + trace edema. BACK: Nontender without obvious deformity. No CVA tenderness. A/P Problem List: (1) DKA (diabetic ketoacidoses) ICD Code: E13.10 Status: Acute (2) UTI (urinary tract infection) ICD Code: N39.0 Status: Acute (3) Metabolic acidosis ICD Code: E87.2 Status: Acute Assessment and Plan 76-year-old female with 1. Bacteremia: 2/4 Positive blood [id number] cocci, repeat blood culture. Currently on Rocephin and add vancomycin IV, consult infectious disease specialist 2. DKA: resolved and s/p insulin drip with serial electron monitoring, 3. Diabetes type 1?: Add NovoLog 70/30 10 units twice a day and continue insulin sliding scale. Hemoglobin A1c pending. 4. UTI: U/a w/ UTI, follow up cultures, continue w/ IV Rocephin. 5. Possible sepsis: Likely source UTI; currently on Rocephin. Follow culture 6. Metabolic Acidosis: Resolved. Likely secondary to DKA however possibility of Sepsis w/ UTI, s/p Blood Cultures, Vanc/Zosyn in ER. Lactic Acid 1.4. Continue w/ diabetes treatment 7. Decubitus ulcer stage I: Continue Santyl and will consult wound care nurse 09/17/16 8. Bilateral edema /Urinary retention? BNP within normal limit, CHF without any evidence of pulmonary congestion; resolved status post Lasix 10 mg IV 1 on 09/15/16 9. Acute renal failure: Resolved with IV fluid hydration, monitor BUN and creatinine 10. DVT Prophylaxis: SCD/Teds. 11. Hypokalemia: Potassium 40 mEq 1 now and monitor electrolyte Transfer to [facility] to treat and eval Problem Qualifiers (1) DKA (diabetic ketoacidoses): Qualified Code: E13.10 - Diabetic ketoacidosis without coma associated with type 2 diabetes mellitus (2) UTI (urinary tract infection): Qualified Code: N30.00 - Acute cystitis without hematuria Anatoliy Byrnes MD Sep 16, 2016 08:55
[2016-09-16] MEDS: SODIUM CHLORIDE 0.9% FLUSH 5 ML FLUSH FLUSH SCH ×2 (09:00→21:00)
[2016-09-16] MEDS ORDERED: Vancomycin Consult Pharmacy 1 EA OTHER SCH (09:15)
[2016-09-16] MEDS: cefTRIAXone INJ 1,000 MG in SODIUM CHLORIDE 0.9% INJ 100 ML IV SCH (09:15)
[2016-09-16] MEDS: COLLAGENASE OINT 30 GM TUBE TOP SCH (09:15)
[2016-09-16 09:52] LABS: HEMOGLOBIN A1a 1.7 %; HEMOGLOBIN A1b 1.3 %; HEMOGLOBIN Ao 68.6 %; HEMOGLOBIN F 3.1 %; HEMOGLOBIN LA1C 2.6 %; HEMOGLOBIN P3 5.6 %
[2016-09-16] MEDS ORDERED: VANCOMYCIN INJ 1,250 MG in SODIUM CHLOR 0.9% 250 ML INJ 250 ML IV SCH (11:00)
[2016-09-16] MEDS: VANCOMYCIN INJ 1,250 MG in SODIUM CHLOR 0.9% 250 ML INJ 250 ML IV SCH (12:05)
--- NOTE | 2016-09-16 14:46 | PD.ID.CON ---
History of Present Illness Service ID Consult Requested By Reason for Consult Evaluation and Mment of Bacteremia. Primary Care Physician Paul Balbuena MD Diagnoses: History of Present Illness is a 76 y/o CF with PMHx of HTN and DM who was brought to the ER by EMS secondary to altered mental status reported by family. History limited and from review of medical records. On arrival, BP 100/54, HR 80, O2 sat 99% on RA, Afebrile. CBC essentially unremarkable. Creatinine 1.37, previously 0.85 on 06/07. Anion gap 23. CO2 13.8. BS 447. CPK 331. Lactic Acid 1.4. UA positive for UTI. CT Head with no acute findings, remote lacunar infarct left basal ganglia. CXR with no focal consolidation. Started on insulin gtt in ER for DKA, in addition to Vanc/Zosyn for possible Sepsis. Sepsis workup started on admission. BCX positive for GPC. ID consulted for Sepsis and GP bacteremia. Review of Systems ROS Limitations: Altered Mental Status Past Family Social History Allergies: Coded Allergies: No Known Allergies (Verified , 09/14/16) Past Medical History HTN and DM Past Surgical History Appendectomy, Reported Medications Reported Meds & Active Scripts Active Active Prescriptions or Reported Medications Unobtainable Active Ordered Medications Current Medications Medications (Trade) Dose Ordered Sig/Janie Route Start Time Stop Time Status Last Admin (NS Flush) 2 ml UNSCH PRN IVF 09/14/16 16:45 Miscellaneous Information 1 [id number] XX 09/14/16 22:15 (Chlorhexidine 2% Cloth) 3 pack Taper DAILY@04 TOP 09/15/16 04:00 09/11/17 03:59 09/16/16 04:00 (Chlorhexidine 2% Cloth) 3 pack UNSCH PRN TOP 09/14/16 22:15 (NS Flush) 2 ml UNSCH PRN FLUSH 09/14/16 22:15 (NS Flush) 2 ml BID FLUSH 09/15/16 09:00 09/15/16 20:32 (Zofran Inj) 4 mg Q6H PRN IVP 09/14/16 22:15 (Dulcolax Supp) 10 mg DAILY PRN KS 09/14/16 22:15 Acetaminophen 650 mg 650 mg Q6H PRN PO 09/14/16 22:15 Ceftriaxone Sodium 1000 mg/ Sodium Chloride 100 ml @ 200 mls/hr Q24H IV 09/15/16 09:00 09/16/16 09:15 (NS 1000 ml Inj) 1,000 ml @ 125 mls/hr Q8H IV 09/15/16 12:30 09/16/16 12:09 (D50w (Vial) Inj) 25 ml UNSCH PRN IV PUSH 09/15/16 12:30 (Glucagon Inj) 1 mg UNSCH PRN OTHER 09/15/16 12:30 (Mycostatin Powder) 1 applic Q12HR TOPICAL 09/15/16 21:00 09/16/16 09:15 (Santyl Oint) 1 applic DAILY TOP 09/16/16 09:00 09/16/16 09:15 Insulin Human Isoph/Insulin Regular 10 units 10 units BID@08,17 SQ 09/16/16 08:00 09/16/16 17:51 Pharmacy Profile Note 0 ml @ 0 mls/hr UNSCH OTHER 09/16/16 09:15 (Vancomycin Inj/ NS 250 ml Inj) 262.5 ml @ 262.5 mls/ hr Q24H IV 09/16/16 12:00 09/16/16 12:05 Miscellaneous Information SPECIFIC LAB TO BE DRAWN:VANCOMY... ONCE ONCE XX 09/19/16 11:45 09/19/16 11:46 Family History could not be obtained. Social History denies alcohol, no smoking. Resident of [facility] Physical Exam Vital Signs Vital Signs Date Time Temp Pulse Resp B/P Pulse Ox O2 Delivery O2 Flow Rate FiO2 09/16/16 12:00 99.1 89 19 112/68 97 09/16/16 12:00 89 09/16/16 08:00 99.8 92 19 111/63 98 09/16/16 08:00 89 09/16/16 06:00 91 09/16/16 04:00 98 09/16/16 04:00 99.2 98 15 116/60 95 09/16/16 02:00 97 09/16/16 00:00 99 09/16/16 00:00 99.0 98 16 106/55 94 09/15/16 22:00 100 09/15/16 20:57 95 21 09/15/16 20:00 99.3 109 22 79/48 91 09/15/16 20:00 93 09/15/16 18:00 101 09/15/16 16:00 98 09/15/16 16:00 98.7 98 12 93/51 95 Physical Exam GENERAL: This is a well-nourished, well-developed patient, in no apparent distress. SKIN: No rashes, ecchymoses or lesions. Cool and dry. HEAD: Atraumatic. Normocephalic. No temporal or scalp tenderness. EYES: Pupils equal round and reactive. Extraocular motions intact. No scleral icterus. No injection or drainage. ENT: Nose without bleeding, purulent drainage or septal hematoma. Throat without erythema, tonsillar hypertrophy or exudate. Uvula midline. Airway patent. NECK: Trachea midline. Supple, nontender, no meningeal signs. CARDIOVASCULAR: HS audible. RESPIRATORY: Clear to auscultation. Breath sounds equal bilaterally. GASTROINTESTINAL: Abdomen soft, non-tender, nondistended. MUSCULOSKELETAL: Extremities without clubbing, cyanosis, or edema. NEUROLOGICAL: Awake and alert. Sacral: stage 1 ulcer linear along the skin along buttock folds. Psych: cooperative IV line sites with no e/o infection Laboratory Laboratory Tests Test 09/16/16 04:54 White Blood Count 6.3 Red Blood Count 3.55 Hemoglobin 10.0 Hematocrit 30.2 Mean Corpuscular Volume 85.2 Mean Corpuscular Hemoglobin 28.2 Mean Corpuscular Hemoglobin 33.1 Concent Red Cell Distribution Width 15.0 Platelet Count 165 Mean Platelet Volume 7.9 Neutrophils (%) (Auto) 62.5 Lymphocytes (%) (Auto) 25.9 Monocytes (%) (Auto) 10.8 Eosinophils (%) (Auto) 0.5 Basophils (%) (Auto) 0.3 Neutrophils # (Auto) 4.0 Lymphocytes # (Auto) 1.6 Monocytes # (Auto) 0.7 Eosinophils # (Auto) 0.0 Basophils # (Auto) 0.0 CBC Comment DIFF FINAL Differential Comment Sodium Level 141 Potassium Level 3.4 Chloride Level 108 Carbon Dioxide Level 19.7 Anion Gap 13 Blood Urea Nitrogen 6 Creatinine 0.82 Estimat Glomerular Filtration 82 Rate Random Glucose 228 Calcium Level 7.3 Protein Corrected Calcium 8.3 Total Protein 5.3 Date/Time Procedure Status Source Growth 09/14/16 22:15 Aerobic Blood Culture - Preliminary Resulted Blood Peripheral Staph Sp Coagulase Negative Enterococcus Faecalis 09/14/16 22:15 Anaerobic Blood Culture - Preliminary Resulted Blood Peripheral NO GROWTH IN 2 DAYS 09/14/16 19:40 Urine Culture - Final Complete Urine Clean Catch Zoe Albicans Viridans Streptococcus Grp Result Diagram: 09/16/16 0454 09/16/16 0454 Imaging Last Impressions Head CT 09/14/161930 Signed Impressions: Service Date/Time: Wednesday, September 14, 2016 20:06 - CONCLUSION: 1. No acute findings. Remote lacunar infarct left basal ganglia. Shaheen Olsen MD Chest X-Ray 09/14/161930 Signed Impressions: Service Date/Time: Wednesday, September 14, 2016 20:03 - CONCLUSION: 1. No focal consolidation. Tortuous aorta. Shaheen Olsen MD Assessment and Plan Assessment and Plan Enterococcus faecalis bacteremia Staph coagulase negative bacteremia Strep in urine. C.albicans in urine. DM uncontrolled with A1C 16.9 Recs repeat bcx DC Ceftriaxone IV Continue Vanco IV target 15-20. Await blood cultures final negative. follow Cx follow clinically. Nora Kang MD Sep 16, 2016 14:46
[2016-09-17 01:38] VITALS: BP 124/77; PULSE 106; RESP 20; TEMP 98.4; O2SAT 98
[2016-09-17] MEDS: CHLORHEXIDINE GLUCONATE 2 % 1 PACK (2 CLOTHS) TOP SCH (04:00)
[2016-09-17] MEDS: COLLAGENASE OINT 30 GM TUBE TOP SCH (04:24)
[2016-09-17] MEDS: SODIUM CHLOR 0.9% 1000 ML INJ 1,000 ML IV SCH ×3 (06:29→22:05)
[2016-09-17] MEDS: INSULIN ASPART SUPPLEMENTAL SCALE SQ SCH ×4 (06:29→21:00)
[2016-09-17 06:38] VITALS: BP 130/77; PULSE 104; RESP 18; TEMP 98.3; O2SAT 95
[2016-09-17 07:15] VITALS: BP 128/83; PULSE 91; RESP 20; TEMP 98.6; O2SAT 98
[2016-09-17] MEDS: INSULIN HUMAN NPH/R 70/30 1,000 UNITS/10 ML VIAL SQ SCH ×2 (08:24→17:23)
[2016-09-17] MEDS: cefTRIAXone INJ 1,000 MG in SODIUM CHLORIDE 0.9% INJ 100 ML IV SCH (08:25)
[2016-09-17] MEDS: NYSTATIN 100,000 U/GM PWD 15 GM BTL TOPICAL SCH ×2 (08:26→21:00)
[2016-09-17] MEDS: SODIUM CHLORIDE 0.9% FLUSH 5 ML FLUSH FLUSH SCH ×2 (08:32→21:00)
[2016-09-17 09:32] LABS: BICARBONATE 23.2 MEQ/L (21.0-32.0); POTASSIUM 3.6 MEQ/L (3.5-5.1)
[2016-09-17 11:20] VITALS: BP 156/84; PULSE 100; RESP 20; TEMP 98.1; O2SAT 100
--- NOTE | 2016-09-17 11:40 | HHI.PR ---
Subjective Remarks Follow-up DKA/UTI and now Enterococcus faecalis bacteremia 09/15/16-patient seen and examined alert and oriented 2; anion gap closed. Currently afebrile 09/16/16-patient seen and examined, no complaint overnight and stable. Alert and oriented 3. Blood glucose slightly up. 2 positive blood culture 09/17/16-patient seen and examined, stable and afebrile. Currently on vancomycin and Rocephin. Taking by mouth without any complication nausea and vomiting. Objective Vitals Vital Signs Date Time Temp Pulse Resp B/P Pulse Ox O2 Delivery O2 Flow Rate FiO2 09/17/16 07:15 98.6 91 20 128/83 98 09/17/16 06:38 98.3 104 18 130/77 95 09/17/16 01:38 98.4 106 20 124/77 98 09/16/16 21:48 98.2 96 20 146/74 99 09/16/16 17:42 98.1 97 20 158/77 99 09/16/16 16:00 102 09/16/16 16:00 98.8 102 19 126/66 97 09/16/16 12:00 99.1 89 19 112/68 97 09/16/16 12:00 89 I/O 09/16/16 09/16/16 09/16/16 09/17/16 09/17/16 09/17/16 07:00 15:00 23:00 07:00 15:00 23:00 Intake Total 1767 ml 1533 ml 1086 ml 832 ml Output Total 550 ml 650 ml 1600 ml Balance 1217 ml 883 ml 1086 ml -768 ml Intake Oral 1050 ml 460 ml 100 ml IV Total 717 ml 1073 ml 1086 ml 732 ml Output Urine Total 550 ml 650 ml 1600 ml # Bowel Movements 0 1 1 Result Diagram: 09/16/16 0454 09/17/16 0812 Imaging Last Impressions Head CT 09/14/161930 Signed Impressions: Service Date/Time: Wednesday, September 14, 2016 20:06 - CONCLUSION: 1. No acute findings. Remote lacunar infarct left basal ganglia. Shaheen Olsen MD Chest X-Ray 09/14/161930 Signed Impressions: Service Date/Time: Wednesday, September 14, 2016 20:03 - CONCLUSION: 1. No focal consolidation. Tortuous aorta. Shaheen Olsen MD Objective Remarks GENERAL: NAD but lethargic SKIN: Warm and dry. HEAD: Normocephalic. EYES: No scleral icterus. No injection or drainage. NECK: Supple, trachea midline. No JVD or lymphadenopathy. CARDIOVASCULAR: Regular rate and rhythm without murmurs, gallops, or rubs. RESPIRATORY: Breath sounds decrease bilaterally. No accessory muscle use. GASTROINTESTINAL: Abdomen soft, non-tender, nondistended. MUSCULOSKELETAL: No cyanosis; + trace edema. BACK: Nontender without obvious deformity. No CVA tenderness. A/P Problem List: (1) DKA (diabetic ketoacidoses) ICD Code: E13.10 Status: Acute (2) UTI (urinary tract infection) ICD Code: N39.0 Status: Acute (3) Metabolic acidosis ICD Code: E87.2 Status: Acute (4) Bacteremia due to Enterococcus ICD Code: R78.81 Status: Acute Assessment and Plan 76-year-old female with 1. Enterococcus faecalis Bacteremia: Currently on Rocephin and vancomycin IV pending repeat blood culture report, appreciate input from infectious disease specialist 2. DKA: resolved and s/p insulin drip with serial electron monitoring, 3. Diabetes type 1?: Currently normoglycemic on NovoLog 70/30 10 units twice a day and continue insulin sliding scale. Hemoglobin A1c pending. 4. UTI: U/a w/ UTI, follow up cultures, continue w/ IV Rocephin. 5. Possible sepsis: Likely source UTI; currently on Rocephin. Positive for Zoe as biker 6. Metabolic Acidosis: Resolved. Likely secondary to DKA however possibility of Sepsis w/ UTI, s/p Blood Cultures, Vanc/Zosyn in ER. Lactic Acid 1.4. Continue w/ diabetes treatment 7. Decubitus ulcer stage I: Continue Santyl and consult wound care nurse today 09/17/16 8. Bilateral edema /Urinary retention? BNP within normal limit, CHF without any evidence of pulmonary congestion; resolved status post Lasix 10 mg IV 1 on 09/15/16 9. Acute renal failure: Resolved with IV fluid hydration, monitor BUN and creatinine . HLIV 10. DVT Prophylaxis: SCD/Teds. 11. Hypokalemia: Resolved status post replacement Problem Qualifiers (1) DKA (diabetic ketoacidoses): Qualified Code: E13.10 - Diabetic ketoacidosis without coma associated with type 2 diabetes mellitus (2) UTI (urinary tract infection): Qualified Code: N30.00 - Acute cystitis without hematuria Anatoliy Byrnes MD Sep 17, 2016 11:40
[2016-09-17] MEDS: VANCOMYCIN INJ 1,250 MG in SODIUM CHLOR 0.9% 250 ML INJ 250 ML IV SCH (11:45)
[2016-09-17 15:40] VITALS: BP 127/80; PULSE 99; RESP 20; TEMP 97.6; O2SAT 100
[2016-09-17 20:12] VITALS: BP 109/71; PULSE 102; RESP 19; TEMP 98; O2SAT 98
--- NOTE | 2016-09-17 22:43 | EKG ---
Date Performed: 09/14/2016 Time Performed: 19:45:33 PTAGE: 76 years EKG: Sinus rhythm NORMAL ECG INTERPRETATION BASED ON A DEFAULT AGE OF 40 YEARS PREVIOUS TRACING : 10/31/2012 19.59 Compared to prior tracing no significant change DOCTOR: Quinn Harper Interpretating Date/Time 09/17/2016 22:41:57
[2016-09-18 00:07] VITALS: BP 123/74; PULSE 97; RESP 18; TEMP 98.3; O2SAT 96
[2016-09-18] MEDS: CHLORHEXIDINE GLUCONATE 2 % 1 PACK (2 CLOTHS) TOP SCH (04:00)
[2016-09-18 05:02] VITALS: BP 143/85; PULSE 84; RESP 18; TEMP 98.1; O2SAT 100
[2016-09-18] MEDS: INSULIN ASPART SUPPLEMENTAL SCALE SQ SCH ×4 (05:25→21:00)
[2016-09-18] MEDS ORDERED: VANCOMYCIN INJ 1,250 MG in SODIUM CHLOR 0.9% 250 ML INJ 250 ML IV SCH (06:00)
[2016-09-18 08:00] VITALS: BP 141/84; PULSE 84; RESP 18; TEMP 97.9; O2SAT 100
[2016-09-18 08:10] LABS: AUTOMATED NEUTROPHIL # 1.9 TH/MM3 (1.8-7.7); BASOPHIL % 0.9 % (0.0-2.0); EOSINOPHIL # 0.1 TH/MM3 (0-0.4); EOSINOPHIL % 2.1 % (0.0-4.0); HEMATOCRIT 30.8 % (35.0-46.0); HEMO FLAGS DIFF FINAL; LYMPH % 35.7 % (9.0-44.0); LYMPHOCYTE # 1.4 TH/MM3 (1.0-4.8); MEAN CELL VOLUME 84.3 FL (80.0-100.0); MEAN CORPUSCULAR HEMOGLOBIN 28.1 PG (27.0-34.0); MEAN CORPUSCULAR HGB CONC 33.3 % (32.0-36.0); MONO % 13.5 % (0.0-8.0); NEUT % 47.8 % (16.0-70.0); PLATELET COUNT 197 TH/MM3 (150-450); RED BLOOD COUNT 3.65 MIL/MM3 (4.00-5.30); RED CELL DISTRIBUTION WIDTH 14.7 % (11.6-17.2)
[2016-09-18] MEDS: COLLAGENASE OINT 30 GM TUBE TOP SCH (08:11)
[2016-09-18] MEDS: cefTRIAXone INJ 1,000 MG in SODIUM CHLORIDE 0.9% INJ 100 ML IV SCH (08:40)
[2016-09-18] MEDS: SODIUM CHLORIDE 0.9% FLUSH 5 ML FLUSH FLUSH SCH ×2 (08:40→21:39)
[2016-09-18] MEDS: INSULIN HUMAN NPH/R 70/30 1,000 UNITS/10 ML VIAL SQ SCH ×2 (08:40→17:16)
[2016-09-18] MEDS: NYSTATIN 100,000 U/GM PWD 15 GM BTL TOPICAL SCH ×2 (08:41→21:00)
[2016-09-18 08:44] LABS: BICARBONATE 27.1 MEQ/L (21.0-32.0); POTASSIUM 3.1 MEQ/L (3.5-5.1)
[2016-09-18 12:00] VITALS: BP 140/90; PULSE 92; RESP 18; TEMP 98.1; O2SAT 96
--- NOTE | 2016-09-18 13:56 | HHI.PR ---
Subjective Remarks Follow-up DKA/UTI and now Enterococcus faecalis bacteremia 09/15/16-patient seen and examined alert and oriented 2; anion gap closed. Currently afebrile 09/16/16-patient seen and examined, no complaint overnight and stable. Alert and oriented 3. Blood glucose slightly up. 2 positive blood culture 09/17/16-patient seen and examined, stable and afebrile. Currently on vancomycin and Rocephin. Taking by mouth without any complication nausea and vomiting. 09/18/16-patient seen and examined; no complaints. No acute event overnight. Currently afebrile blood culture negative 2 days. Objective Vitals Vital Signs Date Time Temp Pulse Resp B/P Pulse Ox O2 Delivery O2 Flow Rate FiO2 09/18/16 12:00 98.1 92 18 140/90 96 09/18/16 08:00 97.9 84 18 141/84 100 09/18/16 05:02 98.1 84 18 143/85 100 09/18/16 00:07 98.3 97 18 123/74 96 09/17/16 20:12 98.0 102 19 109/71 98 09/17/16 15:40 97.6 99 20 127/80 100 I/O 09/17/16 09/17/16 09/17/16 09/18/16 09/18/16 09/18/16 07:00 15:00 23:00 07:00 15:00 23:00 Intake Total 832 ml 253 ml 120 ml Output Total 1600 ml 800 ml 2050 ml Balance -768 ml -547 ml -1930 ml Intake Oral 100 ml 120 ml IV Total 732 ml 253 ml Output Urine Total 1600 ml 800 ml 2050 ml # Bowel Movements 1 1 Result Diagram: 09/18/16 0753 09/18/16 0753 Imaging Last Impressions Head CT 09/14/161930 Signed Impressions: Service Date/Time: Wednesday, September 14, 2016 20:06 - CONCLUSION: 1. No acute findings. Remote lacunar infarct left basal ganglia. Shaheen Olsen MD Chest X-Ray 09/14/161930 Signed Impressions: Service Date/Time: Wednesday, September 14, 2016 20:03 - CONCLUSION: 1. No focal consolidation. Tortuous aorta. Shaheen Olsen MD Objective Remarks GENERAL: NAD but lethargic SKIN: Warm and dry. HEAD: Normocephalic. EYES: No scleral icterus. No injection or drainage. NECK: Supple, trachea midline. No JVD or lymphadenopathy. CARDIOVASCULAR: Regular rate and rhythm without murmurs, gallops, or rubs. RESPIRATORY: Breath sounds decrease bilaterally. No accessory muscle use. GASTROINTESTINAL: Abdomen soft, non-tender, nondistended. MUSCULOSKELETAL: No cyanosis; + trace edema. BACK: Nontender without obvious deformity. No CVA tenderness. Procedures Non- A/P Problem List: (1) DKA (diabetic ketoacidoses) ICD Code: E13.10 Status: Acute (2) UTI (urinary tract infection) ICD Code: N39.0 Status: Acute (3) Metabolic acidosis ICD Code: E87.2 Status: Acute (4) Bacteremia due to Enterococcus ICD Code: R78.81 Status: Acute (5) Hypokalemia ICD Code: E87.6 Status: Acute (6) Ingrown nail ICD Code: L60.0 Status: Acute (7) Decubitus ulcer of buttock, stage 1 ICD Code: L89.301 Status: Acute Assessment and Plan 76-year-old female with 1. Enterococcus faecalis Bacteremia: Currently on Rocephin and vancomycin IV and repeat blood culture NTD x 2 days, appreciate input from infectious disease specialist 2. DKA: resolved and s/p insulin drip with serial electron monitoring, 3. Diabetes type 1?: Currently normoglycemic on NovoLog 70/30 10 units twice a day and continue insulin sliding scale. Hemoglobin A1c 16.9. Patient will need outpatient follow-up with endocrinology. 4. UTI: Culture positive for viridans strep ; continue w/ IV Rocephin. 5. Possible sepsis: Likely source UTI; currently on Rocephin. Positive for Zoe as minooker 6. Metabolic Acidosis: Resolved. Likely secondary to DKA however possibility of Sepsis w/ UTI, s/p Blood Cultures, Vanc/Zosyn in ER. Lactic Acid 1.4. Continue w/ diabetes treatment 7. Decubitus ulcer stage I: Continue Santyl and consult wound care nurse ff 8. Bilateral edema /Urinary retention: BNP within normal limit, CHF without any evidence of pulmonary congestion; resolved status post Lasix 10 mg IV 1 on 09/15/16 9. Acute renal failure: Resolved with IV fluid hydration, monitor BUN and creatinine . HLIV 10. DVT Prophylaxis: SCD/Teds. 11. Hypokalemia: Give potassium 75 mEq 1 now and monitor 12. Ingrown nails: Patient will need outpatient follow-up with podiatry Problem Qualifiers (1) DKA (diabetic ketoacidoses): Qualified Code: E13.10 - Diabetic ketoacidosis without coma associated with type 2 diabetes mellitus (2) UTI (urinary tract infection): Qualified Code: N30.00 - Acute cystitis without hematuria Anatoliy Byrnes MD Sep 18, 2016 13:56
[2016-09-18] MEDS ORDERED: POTASSIUM CHLORIDE 25 MEQ EFFERVESCENT TAB PO ONE (14:00)
[2016-09-18 16:15] VITALS: BP 134/72; PULSE 102; RESP 20; TEMP 98.1; O2SAT 96
[2016-09-18] MEDS: VANCOMYCIN INJ 1,250 MG in SODIUM CHLOR 0.9% 250 ML INJ 250 ML IV SCH (17:16)
[2016-09-18] MEDS: SODIUM CHLOR 0.9% 1000 ML INJ 1,000 ML IV SCH (21:41)
[2016-09-19 04:00] VITALS: BP 129/76; PULSE 104; RESP 20; TEMP 97.5; O2SAT 97
[2016-09-19] MEDS: CHLORHEXIDINE GLUCONATE 2 % 1 PACK (2 CLOTHS) TOP SCH (04:00)
[2016-09-19] MEDS ORDERED: PHARMACY ORDERED LAB XX ONE (05:45)
[2016-09-19] MEDS: VANCOMYCIN INJ 1,250 MG in SODIUM CHLOR 0.9% 250 ML INJ 250 ML IV SCH ×2 (06:00→17:24)
[2016-09-19] MEDS: INSULIN ASPART SUPPLEMENTAL SCALE SQ SCH ×4 (07:00→21:27)
[2016-09-19 08:13] VITALS: BP 129/79; PULSE 105; RESP 18; TEMP 99.3; O2SAT 98
[2016-09-19] MEDS: cefTRIAXone INJ 1,000 MG in SODIUM CHLORIDE 0.9% INJ 100 ML IV SCH (08:26)
[2016-09-19] MEDS: SODIUM CHLORIDE 0.9% FLUSH 5 ML FLUSH FLUSH SCH ×2 (08:27→21:00)
[2016-09-19] MEDS: COLLAGENASE OINT 30 GM TUBE TOP SCH (08:27)
[2016-09-19] MEDS: INSULIN HUMAN NPH/R 70/30 1,000 UNITS/10 ML VIAL SQ SCH ×2 (08:27→17:14)
[2016-09-19] MEDS: NYSTATIN 100,000 U/GM PWD 15 GM BTL TOPICAL SCH ×2 (08:28→21:27)
[2016-09-19 10:15] LABS: AUTOMATED NEUTROPHIL # 2.2 TH/MM3 (1.8-7.7); BASOPHIL % 0.4 % (0.0-2.0); EOSINOPHIL # 0.1 TH/MM3 (0-0.4); EOSINOPHIL % 1.7 % (0.0-4.0); HEMATOCRIT 30.7 % (35.0-46.0); HEMO FLAGS DIFF FINAL; LYMPHOCYTE # 1.3 TH/MM3 (1.0-4.8); MEAN CORPUSCULAR HEMOGLOBIN 27.7 PG (27.0-34.0); MEAN CORPUSCULAR HGB CONC 32.6 % (32.0-36.0); MONO % 14.9 % (0.0-8.0); PLATELET COUNT 207 TH/MM3 (150-450); RED BLOOD COUNT 3.61 MIL/MM3 (4.00-5.30); RED CELL DISTRIBUTION WIDTH 14.8 % (11.6-17.2); WHITE BLOOD COUNT 4.2 TH/MM3 (4.0-11.0)
[2016-09-19 10:51] LABS: BICARBONATE 26.4 MEQ/L (21.0-32.0); POTASSIUM 3.4 MEQ/L (3.5-5.1); VANCOMYCIN TROUGH 32.6 MCG/ML (5.0-10.0)
[2016-09-19 13:26] VITALS: BP 134/90; PULSE 106; RESP 18; TEMP 98.8; O2SAT 98
--- NOTE | 2016-09-19 14:36 | HHI.PR ---
Subjective Remarks In the chair doesn't appear in acute distress. No n/v/d/c. Denies fever or chills. Objective Vitals Vital Signs Date Time Temp Pulse Resp B/P Pulse Ox O2 Delivery O2 Flow Rate FiO2 09/19/16 13:26 98.8 106 18 134/90 98 09/19/16 08:13 99.3 105 18 129/79 98 09/19/16 04:00 97.5 104 20 129/76 97 09/18/16 16:15 98.1 102 20 134/72 96 I/O 09/18/16 09/18/16 09/18/16 09/19/16 09/19/16 09/19/16 07:00 15:00 23:00 07:00 15:00 23:00 Intake Total 120 ml 480 ml Output Total 2050 ml 1250 ml 550 ml 700 ml Balance -1930 ml -770 ml -550 ml -700 ml Intake Oral 120 ml 480 ml Output Urine Total 2050 ml 1250 ml 550 ml 700 ml # Bowel Movements 1 Result Diagram: 09/19/16 0948 09/19/16 0948 Imaging Last Impressions Head CT 09/14/161930 Signed Impressions: Service Date/Time: Wednesday, September 14, 2016 20:06 - CONCLUSION: 1. No acute findings. Remote lacunar infarct left basal ganglia. Shaheen Olsen MD Chest X-Ray 09/14/161930 Signed Impressions: Service Date/Time: Wednesday, September 14, 2016 20:03 - CONCLUSION: 1. No focal consolidation. Tortuous aorta. Shaheen Olsen MD Objective Remarks GENERAL: NAD but lethargic SKIN: Warm and dry. HEAD: Normocephalic. EYES: No scleral icterus. No injection or drainage. NECK: Supple, trachea midline. No JVD or lymphadenopathy. CARDIOVASCULAR: Regular rate and rhythm without murmurs, gallops, or rubs. RESPIRATORY: Breath sounds decrease bilaterally. No accessory muscle use. GASTROINTESTINAL: Abdomen soft, non-tender, nondistended. MUSCULOSKELETAL: No cyanosis; + trace edema. BACK: Nontender without obvious deformity. No CVA tenderness. Procedures Non- A/P Problem List: (1) DKA (diabetic ketoacidoses) ICD Code: E13.10 Status: Acute (2) UTI (urinary tract infection) ICD Code: N39.0 Status: Acute (3) Metabolic acidosis ICD Code: E87.2 Status: Acute (4) Bacteremia due to Enterococcus ICD Code: R78.81 Status: Acute (5) Hypokalemia ICD Code: E87.6 Status: Acute (6) Ingrown nail ICD Code: L60.0 Status: Acute (7) Decubitus ulcer of buttock, stage 1 ICD Code: L89.301 Status: Acute Assessment and Plan 76-year-old female with 1. Enterococcus faecalis Bacteremia: Currently on Rocephin and vancomycin IV and repeat blood culture 09/16 NTD appreciate input from infectious disease specialist. Discussed with Dr Wild, discontinue Rocephin 2. DKA: resolved and s/p insulin drip with serial electron monitoring, 3. Diabetes insulin dependent, Uncontrolled A1c 16.9. Currently normoglycemic on NovoLog 70/30 10 units twice a day and continue insulin sliding scale. Hemoglobin A1c 16.9. Patient will need outpatient follow-up with endocrinology. 4. UTI: Culture positive for viridans strep ; continue w/ IV Rocephin. 5. Possible sepsis: Likely source UTI; currently on Rocephin. Positive for Zoe as gavin 6. Metabolic Acidosis: Resolved. Likely secondary to DKA however possibility of Sepsis w/ UTI, s/p Blood Cultures, Vanc/Zosyn in ER. Lactic Acid 1.4. Continue w/ diabetes treatment 7. Decubitus ulcer stage I: Continue Santyl and consult wound care nurse ff 8. Bilateral edema /Urinary retention: BNP within normal limit, CHF without any evidence of pulmonary congestion; resolved status post Lasix 10 mg IV 1 on 09/15/16 9. Acute renal failure: Resolved with IV fluid hydration, monitor BUN and creatinine . HLIV 10. DVT Prophylaxis: SCD/Teds. 11. Hypokalemia: Received potassium 75 mEq 1 and monitor and replace as need 12. Ingrown nails: Patient will need outpatient follow-up with podiatry DC when improved poss tomorrow discussed with Dr wild will give recommendations at DC tomorrow Problem Qualifiers (1) DKA (diabetic ketoacidoses): Qualified Code: E13.10 - Diabetic ketoacidosis without coma associated with type 2 diabetes mellitus (2) UTI (urinary tract infection): Qualified Code: N30.00 - Acute cystitis without hematuria Beverly Salinas MD Sep 19, 2016 14:36
[2016-09-19 16:00] VITALS: BP 122/79; PULSE 97; RESP 18; TEMP 98; O2SAT 98
--- NOTE | 2016-09-19 17:40 | HHI.IDPN ---
Subjective Subjective Remarks is a 76 y/o CF with PMHx of HTN and DM who was brought to the ER by EMS secondary to altered mental status reported by family. ID following for E.faecalis bacteremia. Overnight events reviewed. No fever No rash No diarrhea Sitting in chair. Alert oriented. Antibiotics Ceftriaxone IV Vanco IV Lines Line sites with no e/o infection Past Medical History reviewed. Allergies: Coded Allergies: No Known Allergies (Verified , 09/14/16) Objective . Vital Signs Date Time Temp Pulse Resp B/P Pulse Ox O2 Delivery O2 Flow Rate FiO2 09/19/16 16:00 98.0 97 18 122/79 98 09/19/16 13:26 98.8 106 18 134/90 98 09/19/16 08:13 99.3 105 18 129/79 98 09/19/16 04:00 97.5 104 20 129/76 97 09/18/16 09/18/16 09/19/16 15:00 23:00 07:00 Intake Total 480 ml Output Total 1250 ml 550 ml 700 ml Balance -770 ml -550 ml -700 ml Intake Oral 480 ml Output Urine Total 1250 ml 550 ml 700 ml # Bowel Movements 1 . Laboratory Tests Test 09/18/16 09/19/16 07:53 09:48 White Blood Count 4.0 TH/MM3 4.2 TH/MM3 Red Blood Count 3.65 MIL/MM3 3.61 MIL/MM3 Hemoglobin 10.2 GM/DL 10.0 GM/DL Hematocrit 30.8 % 30.7 % Mean Corpuscular Volume 84.3 FL 85.0 FL Mean Corpuscular Hemoglobin 28.1 PG 27.7 PG Mean Corpuscular Hemoglobin 33.3 % 32.6 % Concent Red Cell Distribution Width 14.7 % 14.8 % Platelet Count 197 TH/MM3 207 TH/MM3 Mean Platelet Volume 7.6 FL 7.6 FL Neutrophils (%) (Auto) 47.8 % 53.0 % Lymphocytes (%) (Auto) 35.7 % 30.0 % Monocytes (%) (Auto) 13.5 % 14.9 % Eosinophils (%) (Auto) 2.1 % 1.7 % Basophils (%) (Auto) 0.9 % 0.4 % Neutrophils # (Auto) 1.9 TH/MM3 2.2 TH/MM3 Lymphocytes # (Auto) 1.4 TH/MM3 1.3 TH/MM3 Monocytes # (Auto) 0.5 TH/MM3 0.6 TH/MM3 Eosinophils # (Auto) 0.1 TH/MM3 0.1 TH/MM3 Basophils # (Auto) 0.0 TH/MM3 0.0 TH/MM3 CBC Comment DIFF FINAL DIFF FINAL Differential Comment Laboratory Tests Test 09/18/16 09/19/16 07:53 09:48 Sodium Level 142 MEQ/L 139 MEQ/L Potassium Level 3.1 MEQ/L 3.4 MEQ/L Chloride Level 105 MEQ/L 103 MEQ/L Carbon Dioxide Level 27.1 MEQ/L 26.4 MEQ/L Anion Gap 10 MEQ/L 10 MEQ/L Blood Urea Nitrogen 2 MG/DL 4 MG/DL Creatinine 0.50 MG/DL 0.49 MG/DL Estimat Glomerular Filtration 146 ML/MIN 149 ML/MIN Rate Random Glucose 168 MG/DL 178 MG/DL Calcium Level 7.7 MG/DL 8.0 MG/DL Phosphorus Level 2.4 MG/DL Imaging Last Impressions Head CT 09/14/161930 Signed Impressions: Service Date/Time: Wednesday, September 14, 2016 20:06 - CONCLUSION: 1. No acute findings. Remote lacunar infarct left basal ganglia. Shaheen Olsen MD Chest X-Ray 09/14/161930 Signed Impressions: Service Date/Time: Wednesday, September 14, 2016 20:03 - CONCLUSION: 1. No focal consolidation. Tortuous aorta. Shaheen Olsen MD Physical Exam GENERAL: This is a well-nourished, well-developed patient, in no apparent distress. SKIN: No rashes, ecchymoses or lesions. Cool and dry. HEAD: Atraumatic. Normocephalic. No temporal or scalp tenderness. EYES: Pupils equal round and reactive. Extraocular motions intact. No scleral icterus. No injection or drainage. ENT: Nose without bleeding, purulent drainage or septal hematoma. Throat without erythema, tonsillar hypertrophy or exudate. Uvula midline. Airway patent. NECK: Trachea midline. Supple, nontender, no meningeal signs. CARDIOVASCULAR: HS audible. RESPIRATORY: Clear to auscultation. Breath sounds equal bilaterally. GASTROINTESTINAL: Abdomen soft, non-tender, nondistended. MUSCULOSKELETAL: Extremities without clubbing, cyanosis, or edema. NEUROLOGICAL: Awake and alert. Sacral: stage 1 ulcer linear along the skin along buttock folds. Psych: cooperative IV line sites with no e/o infection Assessment & Plan Remarks Enterococcus faecalis bacteremia Staph coagulase negative bacteremia Strep in urine. C.albicans in urine. DM uncontrolled with A1C 16.9 Recs Follow repeat bcx DC Ceftriaxone IV Continue Vanco IV target 15-20. Await blood cultures final negative. follow Cx follow clinically. d.w patients daughter and family that if repeat BCX negative would recommend 14 day course. If repeat BCX positive will need endovascular workup. Recommend outpatient Colonoscopy d/w daughter to get this arranged as outpt. Nora Kang MD Sep 19, 2016 17:40
[2016-09-19 20:00] VITALS: BP 118/71; PULSE 107; RESP 18; TEMP 97.4; O2SAT 98
[2016-09-20] VITALS (7 sets, daily range): BP systolic 98–148; BP diastolic 57–81; PULSE 88–109; RESP 18–20; TEMP 97.3–99.6; O2SAT 94–100
[2016-09-20] MEDS: CHLORHEXIDINE GLUCONATE 2 % 1 PACK (2 CLOTHS) TOP SCH (04:00)
[2016-09-20] MEDS ORDERED: PHARMACY ORDERED LAB XX ONE (05:45)
[2016-09-20] MEDS: INSULIN ASPART SUPPLEMENTAL SCALE SQ SCH ×4 (05:53→22:12)
[2016-09-20] MEDS: VANCOMYCIN INJ 1,250 MG in SODIUM CHLOR 0.9% 250 ML INJ 250 ML IV SCH (06:35)
[2016-09-20 06:53] LABS: VANCOMYCIN TROUGH 10.2 MCG/ML (5.0-10.0)
[2016-09-20] MEDS: INSULIN HUMAN NPH/R 70/30 1,000 UNITS/10 ML VIAL SQ SCH ×2 (08:55→16:48)
[2016-09-20] MEDS: SODIUM CHLORIDE 0.9% FLUSH 5 ML FLUSH FLUSH SCH ×2 (09:00→22:12)
[2016-09-20] MEDS: NYSTATIN 100,000 U/GM PWD 15 GM BTL TOPICAL SCH ×2 (09:00→22:15)
[2016-09-20] MEDS: COLLAGENASE OINT 30 GM TUBE TOP SCH (09:00)
--- NOTE | 2016-09-20 13:41 | HHI.PR ---
Subjective Remarks Says she feels sleepy and tired today. No n/v/d/c. nonproductive cough. No fever or chills. Objective Vitals Vital Signs Date Time Temp Pulse Resp B/P Pulse Ox O2 Delivery O2 Flow Rate FiO2 09/20/16 12:09 98.5 108 18 118/71 96 09/20/16 09:11 99.6 106 18 125/80 09/20/16 04:00 97.3 109 20 98/57 100 09/20/16 00:00 97.3 92 18 115/70 97 09/19/16 20:00 97.4 107 18 118/71 98 09/19/16 16:00 98.0 97 18 122/79 98 I/O 09/19/16 09/19/16 09/19/16 09/20/16 09/20/16 09/20/16 07:00 15:00 23:00 07:00 15:00 23:00 Intake Total 960 ml 120 ml Output Total 700 ml 1350 ml 1800 ml Balance -700 ml -390 ml -1680 ml Intake Oral 960 ml 120 ml Output Urine Total 700 ml 1350 ml 1800 ml Result Diagram: 09/19/16 0948 09/20/16 0545 Imaging Last Impressions Head CT 09/14/161930 Signed Impressions: Service Date/Time: Wednesday, September 14, 2016 20:06 - CONCLUSION: 1. No acute findings. Remote lacunar infarct left basal ganglia. Shaheen Olsen MD Chest X-Ray 09/14/161930 Signed Impressions: Service Date/Time: Wednesday, September 14, 2016 20:03 - CONCLUSION: 1. No focal consolidation. Tortuous aorta. Shaheen Olsen MD Objective Remarks GENERAL: NAD but lethargic SKIN: Warm and dry. HEAD: Normocephalic. EYES: No scleral icterus. No injection or drainage. NECK: Supple, trachea midline. No JVD or lymphadenopathy. CARDIOVASCULAR: Regular rate and rhythm without murmurs, gallops, or rubs. RESPIRATORY: Breath sounds decrease bilaterally. No accessory muscle use. GASTROINTESTINAL: Abdomen soft, non-tender, nondistended. MUSCULOSKELETAL: No cyanosis; + trace edema. BACK: Nontender without obvious deformity. No CVA tenderness. Procedures Non- A/P Problem List: (1) DKA (diabetic ketoacidoses) ICD Code: E13.10 Status: Acute (2) UTI (urinary tract infection) ICD Code: N39.0 Status: Acute (3) Metabolic acidosis ICD Code: E87.2 Status: Acute (4) Bacteremia due to Enterococcus ICD Code: R78.81 Status: Acute (5) Hypokalemia ICD Code: E87.6 Status: Acute (6) Ingrown nail ICD Code: L60.0 Status: Acute (7) Decubitus ulcer of buttock, stage 1 ICD Code: L89.301 Status: Acute Assessment and Plan 76-year-old female with 1. Enterococcus faecalis Bacteremia: Currently on Rocephin and vancomycin IV and repeat blood culture 09/16 NTD appreciate input from infectious disease specialist. Discussed with Dr Wild, discontinue Rocephin 2. DKA: resolved and s/p insulin drip with serial electron monitoring, 3. Diabetes insulin dependent, Uncontrolled A1c 16.9. Currently normoglycemic on NovoLog 70/30 10 units twice a day and continue insulin sliding scale. Hemoglobin A1c 16.9. Patient will need outpatient follow-up with endocrinology. 4. UTI: Culture positive for viridans strep ; continue w/ IV Rocephin. 5. Possible sepsis: Likely source UTI; currently on Rocephin. Positive for Zoe as gavin 6. Metabolic Acidosis: Resolved. Likely secondary to DKA however possibility of Sepsis w/ UTI, s/p Blood Cultures, Vanc/Zosyn in ER. Lactic Acid 1.4. Continue w/ diabetes treatment 7. Decubitus ulcer stage I: Continue Santyl and consult wound care nurse ff 8. Bilateral edema /Urinary retention: BNP within normal limit, CHF without any evidence of pulmonary congestion; resolved status post Lasix 10 mg IV 1 on 09/15/16 9. Acute renal failure: Resolved with IV fluid hydration, monitor BUN and creatinine . HLIV 10. DVT Prophylaxis: SCD/Teds. 11. Hypokalemia: Received potassium 75 mEq 1 and monitor and replace as need 12. Ingrown nails: Patient will need outpatient follow-up with podiatry DC when improved poss tomorrow discussed with Dr wild will give recommendations at DC tomorrow Problem Qualifiers (1) DKA (diabetic ketoacidoses): Qualified Code: E13.10 - Diabetic ketoacidosis without coma associated with type 2 diabetes mellitus (2) UTI (urinary tract infection): Qualified Code: N30.00 - Acute cystitis without hematuria Beverly Salinas MD Sep 20, 2016 13:41
[2016-09-20] MEDS ORDERED: VANCOMYCIN INJ 1,750 MG in SODIUM CHLORID 0.9% 500 ML INJ 500 ML IV SCH (18:00)
[2016-09-20] MEDS ORDERED: VANC10IN IV (19:03)
[2016-09-20] MEDS ORDERED: EPIN1INJ21 IV PUSH (19:03)
[2016-09-20] MEDS ORDERED: SOLU250I IV PUSH (19:03)
[2016-09-20] MEDS ORDERED: EPIN1INJ21 SQ (19:03)
--- NOTE | 2016-09-20 19:07 | HHI.IDPN ---
Subjective Subjective Remarks is a 76 y/o CF with PMHx of HTN and DM who was brought to the ER by EMS secondary to altered mental status reported by family. ID following for E.faecalis bacteremia. Overnight events reviewed. No fever No rash No diarrhea Sitting in chair. Alert oriented. Antibiotics Ceftriaxone IV Vanco IV Lines Line sites with no e/o infection Past Medical History reviewed. Allergies: Coded Allergies: No Known Allergies (Verified , 09/14/16) Objective . Vital Signs Date Time Temp Pulse Resp B/P Pulse Ox O2 Delivery O2 Flow Rate FiO2 09/20/16 16:08 98.3 108 20 148/81 94 09/20/16 12:09 98.5 108 18 118/71 96 09/20/16 09:11 99.6 106 18 125/80 09/20/16 04:00 97.3 109 20 98/57 100 09/20/16 00:00 97.3 92 18 115/70 97 09/19/16 20:00 97.4 107 18 118/71 98 09/19/16 09/19/16 09/20/16 15:00 23:00 07:00 Intake Total 960 ml 120 ml Output Total 1350 ml 1800 ml Balance -390 ml -1680 ml Intake Oral 960 ml 120 ml Output Urine Total 1350 ml 1800 ml . Laboratory Tests Test 09/19/16 09:48 White Blood Count 4.2 TH/MM3 Red Blood Count 3.61 MIL/MM3 Hemoglobin 10.0 GM/DL Hematocrit 30.7 % Mean Corpuscular Volume 85.0 FL Mean Corpuscular Hemoglobin 27.7 PG Mean Corpuscular Hemoglobin 32.6 % Concent Red Cell Distribution Width 14.8 % Platelet Count 207 TH/MM3 Mean Platelet Volume 7.6 FL Neutrophils (%) (Auto) 53.0 % Lymphocytes (%) (Auto) 30.0 % Monocytes (%) (Auto) 14.9 % Eosinophils (%) (Auto) 1.7 % Basophils (%) (Auto) 0.4 % Neutrophils # (Auto) 2.2 TH/MM3 Lymphocytes # (Auto) 1.3 TH/MM3 Monocytes # (Auto) 0.6 TH/MM3 Eosinophils # (Auto) 0.1 TH/MM3 Basophils # (Auto) 0.0 TH/MM3 CBC Comment DIFF FINAL Differential Comment Laboratory Tests Test 09/19/16 09/20/16 09:48 05:45 Sodium Level 139 MEQ/L Potassium Level 3.4 MEQ/L Chloride Level 103 MEQ/L Carbon Dioxide Level 26.4 MEQ/L Anion Gap 10 MEQ/L Blood Urea Nitrogen 4 MG/DL Creatinine 0.49 MG/DL 0.52 MG/DL Estimat Glomerular Filtration 149 ML/MIN 139 ML/MIN Rate Random Glucose 178 MG/DL Calcium Level 8.0 MG/DL Phosphorus Level 2.4 MG/DL Imaging Last Impressions Head CT 09/14/161930 Signed Impressions: Service Date/Time: Wednesday, September 14, 2016 20:06 - CONCLUSION: 1. No acute findings. Remote lacunar infarct left basal ganglia. Shaheen Olsen MD Chest X-Ray 09/14/161930 Signed Impressions: Service Date/Time: Wednesday, September 14, 2016 20:03 - CONCLUSION: 1. No focal consolidation. Tortuous aorta. Shaheen Olsen MD Physical Exam GENERAL: This is a well-nourished, well-developed patient, in no apparent distress. SKIN: No rashes, ecchymoses or lesions. Cool and dry. HEAD: Atraumatic. Normocephalic. No temporal or scalp tenderness. EYES: Pupils equal round and reactive. Extraocular motions intact. No scleral icterus. No injection or drainage. ENT: Nose without bleeding, purulent drainage or septal hematoma. Throat without erythema, tonsillar hypertrophy or exudate. Uvula midline. Airway patent. NECK: Trachea midline. Supple, nontender, no meningeal signs. CARDIOVASCULAR: HS audible. RESPIRATORY: Clear to auscultation. Breath sounds equal bilaterally. GASTROINTESTINAL: Abdomen soft, non-tender, nondistended. MUSCULOSKELETAL: Extremities without clubbing, cyanosis, or edema. NEUROLOGICAL: Awake and alert. Sacral: stage 1 ulcer linear along the skin along buttock folds. Psych: cooperative IV line sites with no e/o infection Assessment & Plan Remarks Enterococcus faecalis bacteremia Staph coagulase negative bacteremia Strep in urine. C.albicans in urine. DM uncontrolled with A1C 16.9 Recs Continue Vanco IV target 15-20. Vanco dose adjusted by me. SNF infusion orders in chart. Case Management to fax to SNF. Recommend outpatient Colonoscopy d/w daughter to get this arranged as outpt. Will sign off please call back if any change in clinical condition or questions. Nora Kang MD Sep 20, 2016 19:06
[2016-09-20] MEDS: SODIUM CHLOR 0.9% 1000 ML INJ 1,000 ML IV SCH (22:12)
[2016-09-21 00:21] VITALS: BP 124/79; PULSE 93; RESP 20; TEMP 97.8; O2SAT 97
[2016-09-21] MEDS: CHLORHEXIDINE GLUCONATE 2 % 1 PACK (2 CLOTHS) TOP SCH (04:00)
[2016-09-21 04:41] VITALS: BP 102/61; PULSE 107; RESP 20; TEMP 99.2; O2SAT 96
[2016-09-21] MEDS: INSULIN ASPART SUPPLEMENTAL SCALE SQ SCH ×2 (05:16→12:12)
[2016-09-21] MEDS ORDERED: VANCOMYCIN INJ 1,500 MG in SODIUM CHLORID 0.9% 500 ML INJ 500 ML IV SCH (06:00)
[2016-09-21 08:00] VITALS: BP 127/78; PULSE 91; RESP 18; TEMP 97.6; O2SAT 100
[2016-09-21] MEDS: COLLAGENASE OINT 30 GM TUBE TOP SCH (08:24)
[2016-09-21] MEDS: NYSTATIN 100,000 U/GM PWD 15 GM BTL TOPICAL SCH (08:24)
[2016-09-21] MEDS: SODIUM CHLORIDE 0.9% FLUSH 5 ML FLUSH FLUSH SCH (08:27)
[2016-09-21] MEDS: INSULIN HUMAN NPH/R 70/30 1,000 UNITS/10 ML VIAL SQ SCH (08:27)
--- NOTE | 2016-09-21 08:39 | HHI.DS ---
Discharge Summary Admission Date Sep 14, 2016 at 22:19 Discharge Date: Sep 21, 2016 Admitting Diagnosis DKA. UTI. Sepsis. (1) DKA (diabetic ketoacidoses) ICD Code: E13.10 Diagnosis: Principal (2) UTI (urinary tract infection) ICD Code: N39.0 Diagnosis: Principal (3) Metabolic acidosis ICD Code: E87.2 Diagnosis: Principal (4) Bacteremia due to Enterococcus ICD Code: R78.81 Diagnosis: Principal (5) Hypokalemia ICD Code: E87.6 Diagnosis: Principal (6) Ingrown nail ICD Code: L60.0 Diagnosis: Secondary (7) Decubitus ulcer of buttock, stage 1 ICD Code: L89.301 Diagnosis: Secondary (8) Uncontrolled diabetes mellitus ICD Code: E11.65 Diagnosis: Principal Procedures Non- Brief History - From Admission This is a 76-year-old female with a PMH of HTN and DM who was brought to the ER by EMS secondary to altered mental status reported by family. History limited. On arrival, BP 100/54, HR 80, O2 sat 99% on RA, Afebrile. CBC essentially unremarkable. Creatinine 1.37, previously 0.85 on 04/04/13. Anion gap 23. CO2 13.8. BS 447. CPK 331. Lactic Acid 1.4. UA positive for UTI. CT Head with no acute findings, remote lacunar infarct left basal ganglia. CXR with no focal consolidation. Started on insulin gtt in ER for DKA, in addition to Vanc/ Zosyn for possible Sepsis. CBC/BMP: 09/19/16 0948 09/20/16 0545 Significant Findings Laboratory Tests Test 09/19/16 09/20/16 09:48 05:45 Red Blood Count 3.61 MIL/MM3 (4.00-5.30) Hemoglobin 10.0 GM/DL (11.6-15.3) Hematocrit 30.7 % (35.0-46.0) Monocytes (%) (Auto) 14.9 % (0.0-8.0) Potassium Level 3.4 MEQ/L (3.5-5.1) Blood Urea Nitrogen 4 MG/DL (7-18) Creatinine 0.49 MG/DL (0.50-1.00) Random Glucose 178 MG/DL (74-106) Calcium Level 8.0 MG/DL (8.5-10.1) Phosphorus Level 2.4 MG/DL (2.5-4.9) Vancomycin Level Trough 32.6 MCG/ML 10.2 MCG/ML (5.0-10.0) (5.0-10.0) Imaging Last Impressions Head CT 09/14/161930 Signed Impressions: Service Date/Time: Wednesday, September 14, 2016 20:06 - CONCLUSION: 1. No acute findings. Remote lacunar infarct left basal ganglia. Shaheen Olsen MD Chest X-Ray 09/14/161930 Signed Impressions: Service Date/Time: Wednesday, September 14, 2016 20:03 - CONCLUSION: 1. No focal consolidation. Tortuous aorta. Shaheen Olsen MD PE at Discharge GENERAL: NAD but lethargic SKIN: Warm and dry. HEAD: Normocephalic. EYES: No scleral icterus. No injection or drainage. NECK: Supple, trachea midline. No JVD or lymphadenopathy. CARDIOVASCULAR: Regular rate and rhythm without murmurs, gallops, or rubs. RESPIRATORY: Breath sounds decrease bilaterally. No accessory muscle use. GASTROINTESTINAL: Abdomen soft, non-tender, nondistended. MUSCULOSKELETAL: No cyanosis; + trace edema. BACK: Nontender without obvious deformity. No CVA tenderness. Pt update on day of discharge Patient in nad. Feels much better. No n/v/d/c. nO fever or chills. Hospital Course 76-year-old female with 1. Enterococcus faecalis Bacteremia: Currently on Rocephin and vancomycin IV and repeat blood culture 09/16 NTD appreciate input from infectious disease specialist. Discussed with Dr Kang, discontinue Rocephin 2. DKA: resolved and s/p insulin drip with serial electron monitoring, 3. Diabetes insulin dependent, Uncontrolled A1c 16.9. Currently normoglycemic on NovoLog 70/30 10 units twice a day and continue insulin sliding scale. Hemoglobin A1c 16.9. Patient will need outpatient follow-up with endocrinology. 4. UTI: Culture positive for viridans strep ; continue w/ IV Rocephin. 5. Possible sepsis: Likely source UTI; currently on Rocephin. Positive for Zoe as gavin 6. Metabolic Acidosis: Resolved. Likely secondary to DKA however possibility of Sepsis w/ UTI, s/p Blood Cultures, Vanc/Zosyn in ER. Lactic Acid 1.4. Continue w/ diabetes treatment 7. Decubitus ulcer stage I: Continue Santyl and consult wound care nurse ff 8. Bilateral edema /Urinary retention: BNP within normal limit, CHF without any evidence of pulmonary congestion; resolved status post Lasix 10 mg IV 1 on 09/15/16 9. Acute renal failure: Resolved with IV fluid hydration, monitor BUN and creatinine . HLIV 10. DVT Prophylaxis: SCD/Teds. 11. Hypokalemia: Received potassium 75 mEq 1 and monitor and replace as need 12. Ingrown nails: Patient will need outpatient follow-up with podiatry Patient improved. blood cx repeat neg x5 days. to [facility] at SNF. DC in fairly stable condition to SNF to follow up as OP with PCP and consultants. Pt Condition on Discharge: Fair Discharge Disposition: Discharge to SNF Discharge Time: > 30 minutes Discharge Instructions DIET: Follow Instructions for: Heart Healthy Diet, Diabetic Diet Activities you can perform: Regular-No Restrictions Follow up Referrals: Diabetic Education PCP Follow-up - 3-5 Days New Medications: Blood Glucose Monitoring W/Device (Glucocom Blood Glucose Mo W/Device) 1 Kit Kit 1 KIT .ROUTE DIRECTED Blood Sugar Management #1 KIT Epinephrine Inj (Epinephrine Inj) 1 Mg/Ml Inj 0.3 MG IV PUSH ONCE PRN ALLERGIC REACTION #1 VIAL Epinephrine Inj (Epinephrine Inj) 1 Mg/Ml Inj 0.3 MG SQ ONCE Give with any signs of respiratory distress. PRN ALLERGIC REACTION #1 VIAL Glucocom Test Strips (Glucocom Test Strips) 1 Anel Anel 1 EA .ROUTE DIRECTED Blood Sugar Management #1 BOX Hydrocortisone Inj (Solu-Cortef Inj) 250 Mg Inj 250 MG IV PUSH ONCE Give over 30-60 seconds. PRN ALLERGIC REACTION #1 Ref 0 VIAL Insulin Human Regular Inj (Novolin R Inj) 1,000 Unit/10 Ml Vial 2-10 UNITS SQ DIRECTED Max dose at bedtime:( )units; sugars less than 150,(0 ) units; sugars 150-199,(2)unit; sugars 200-249,(4)units; sugars 250-299,(6) units; sugars 300-349,(8)units; sugars equal to or greater than 350,(10)units Blood Sugar Management #10 Ref 0 ML Insulin Syringe/U-100/31G X 5/16" 1 ml (Insulin Syringe/U-100/31G X 5/16" 1 ml) 1 Mis Mis 1 EA .ROUTE DIRECTED Blood Sugar Management #1 Ref 0 BOX Lancets (Lancets) 1 Mis Mis 1 EA .ROUTE DIRECTED Blood Sugar Management #1 Ref 0 BOX Parenteral Therapy Supplies (Sharpsafety Sharps Contai) 1 Mis Mis 1 EA .ROUTE DIRECTED #30 Ref 0 EA Vancomycin Inj (Vancomycin Inj) 10 Gm Inj 1500 MG IV Q12HR Infection Days 8 Ref 0 VIAL Insulin Human Isophane-Regular 70-30 Inj (Novolin 70-30 Inj) 1,000 Unit/10 Ml Vial 10 UNITS SQ BID@08,17 Blood Sugar Management #30 INJECTION Beverly Salinas MD Sep 21, 2016 08:39
--- NOTE | 2016-09-21 08:39 | HHI.DCPOC ---
Discharge Care Plan Goals to Promote Your Health * To prevent worsening of your condition and complications * To maintain your health at the optimal level Directions to Meet Your Goals Take your medications as prescribed Follow your dietary instruction Follow activity as directed Keep your appointments as scheduled Take your immunizations and boosters as scheduled If your symptoms worsen call your PCP, if no PCP go to Urgent Care Center or Emergency Room Smoking is Dangerous to Your Health. Avoid second hand smoke Call the 24-hour hour crisis hotline for domestic abuse at Beverly Salinas MD Sep 21, 2016 08:39
[2016-09-21] MEDS ORDERED: LANCETS1 MI1 (10:00)
[2016-09-21] MEDS ORDERED: INSU1MIS15 (10:00)
[2016-09-21] MEDS ORDERED: NOVO7030P2 SQ (10:00)
[2016-09-21] MEDS ORDERED: NOVORP2 SQ (10:00)
[2016-09-21] MEDS ORDERED: BIOM30MI (10:00)
[2016-09-21] MEDS ORDERED: GLUCKIT15 (10:00)
[2016-09-21] MEDS ORDERED: GLUCTES12 (10:00)
--- NOTE | 2016-09-21 11:12 | HHI.FF ---
Infusion Therapy Location of Infusion Therapy: [facility] Infusion Therapy Order Patient Information Appointment Date: Sep 21, 2016 Patient Weight 98.1 kg Diagnosis: Diagnosis E.faecalis bacteremia Coded Allergies: No Known Allergies (Verified , 09/14/16) Administer Medication Vancomycin 1.5 grams IV q 12 hours Start Treatment: Sep 21, 2016 Stop Treatment: Oct 05, 2016 Additional Information Venous access: Peripheral (ok to place PICC line only if absolutely needed.) Additional Instructions [x] Peripheral flush and dressing changes per protocol [x] Implanted port and central electrical line worker: * Implanted port: 10 ml Normal Saline followed by 5 ml Heparin 100 units/ml Heparin flush after each use and monthly to maintain. [] May leave port accessed during therapy. [] May leave peripheral site accessed for duration of therapy. [x] If patient has SOB or respiratory distress, check oxygen saturation. If less than 90% or clinical signs of respiratory distress, administer oxygen at 2 L/min. via nasal cannula and notify physician. [x] Anaphylaxis/Reaction orders: * Stop infusion. * Keep IV line open with saline flush. * Notify physician. * Monitor vital signs every 15 minutes until symptoms resolve. * Check Oxygen saturation; Oxygen at 2 L/min. via nasal cannula if less than 90% or clinical signs of respiratory distress. * Administer diphenhydramine (Benadryl) 25 mg IV STAT, (unless patient has received as pre-med). May repeat once, if necessary. * Solu-Cortef 250 mg IVP over 30-60 seconds, use 100 mg vials for each dissolution. * Epinephrine (1mg/1 ml) 0.3 mg subcutaneously or IVP now with any signs of respiratory distress. * Check with physician for new additional pre-med orders if patient is re- challenged or re-treated. [x] May remove PICC line when treatment complete, after confirming with Physician. [x] If the patient is admitted to the hospital, the ED, or transferred via [facility] , complete transfer form including medication reconciliation order sheet. Laboratory Tests Weekly Labs: CBC w/diff, Creatinine, CRP, LFT's (Hepatic function test), Vancomycin Trough (Target trough 15-20: Notify residential MD if levels elevated to adjust Vancomycin dose if need be.) Additional Information Please draw weekly labs, fax labs to following number. Also call with abnormals , change in clinical condition or problems to: Dr.Tanuja Kang or Covering ID Physician Follow up appt: Follow up with PCP Schedule appt for colonoscopy with [facility] as outpt (d/w daughter to schedule appt but please follow up). Follow up with other MDs as planned. Counseling: Counseled about medication side effects Counseled about Peripheral IV or PICC line care and hand hygiene. Nora Kang MD Sep 21, 2016 11:12
[2016-09-21 12:00] VITALS: BP 138/78; PULSE 98; RESP 18; TEMP 98; O2SAT 99
[2016-09-22] MEDS ORDERED: PHARMACY ORDERED LAB XX ONE (05:45)
== END 2016-09-21 14:01 | DRG 871 ==
LOC: NEPA 15:48 → NEDA 22:19 → NEDH 09-15 01:55 → HIMN 09-15 02:55 → N05B 09-16 16:36
PROVIDERS: ADMIT Hospitalist; ATTEND Hospitalist
PROC: 06HM33Z Insertion of Infusion Device into Right Femoral Vein, Percutaneous Approach (ICD-10-PCS; principal; 2016-09-14)
DX: A40.8 Other streptococcal sepsis (principal); E10.10 Type 1 diabetes mellitus with ketoacidosis without coma; N17.9 Acute kidney failure, unspecified; I11.0 Hypertensive heart disease with heart failure; L89.301 Pressure ulcer of unspecified buttock, stage 1; I50.9 Heart failure, unspecified; N30.00 Acute cystitis without hematuria; I25.10 Atherosclerotic heart disease of native coronary artery without angina pectoris; E87.6 Hypokalemia; E78.5 Hyperlipidemia, unspecified; L60.0 Ingrowing nail; R33.9 Retention of urine, unspecified; R60.9 Edema, unspecified; Z79.4 Long term (current) use of insulin; Z86.73 Personal history of transient ischemic attack (TIA), and cerebral infarction without residual deficits
CPT/HCPCS: 36556; 36600; 70450; 71010; 80048; 80076; 80202; 81001; 82010; 82550; 82552; 82565; 82805; 82948; 83036; 83605; 83735; 83880; 84100; 84155; 84443; 84484; 85025; 85610; 85730; 87040; 87077; 87086; 87186; 87205; 87641; 93005; 96365; J0696; J1815; J1817; J1940; J2543; J3370; J3480; J7030; J7040; J7042; J7050; P9612